=== PATIENT | male | born 1955 | race Two or more races ===

== ENCOUNTER 2017-03-18 21:14 | Emergency (ER) | payer OTHER | END 2017-03-18 22:05 | disposition left against medical advice (07) | LOC: ER 21:14 | DX: Z53.21 Procedure and treatment not carried out due to patient leaving prior to being seen by health care provider (principal) ==

== ENCOUNTER → 2017-04-22 | Outpatient (CLI) | payer OTHER ==
[~2017-04-22] MED LIST: ALLO300; Bactrim 400-801 EACH PO; FAMC500; ONDA4ODT MM; PRED20 PO; Rituxan10 MG/ML; TREANDA IV
[2017-04-22 15:02] LABS: Alanine Aminotransfer (ALT/SGP 22 U/L (12-78); Albumin, Blood 3.4 g/dL (3.4-5.0); Albumin/Globulin Ratio 1.3 (0.8-1.8); Alk Phos 33 U/L (50-136); Anion Gap 10 mmol/L (6-16); Aspartate Aminotrans (AST/SGOT 26 U/L (12-37); Bilirubin, Total 0.5 mg/dL (0.1-1.0); Blood Urea Nitrogen 11 mg/dL (8-24); Bun/Creatinine Ratio 12.3 (12.0-20.0); CO2, Blood 26 mmol/L (21-32); Calcium, Blood 8.3 mg/dL (8.5-10.1); Chloride, Blood 105 mmol/L (98-108); Creatinine, Blood 0.89 mg/dL (0.60-1.20); Globulin, Blood 2.7 g/dL (2.2-4.0); Glomerular Filtration Rate >60 (60-); Glucose, Blood 106 mg/dL (70-99); Sodium, Blood 141 mmol/L (136-145); Total Protein, Blood 6.1 g/dL (6.4-8.2)
== END ==
LOC: LAB 09:05
PROVIDERS: Internal Medicine Hematology & Oncology
DX: C91.10 Chronic lymphocytic leukemia of B-cell type not having achieved remission (principal)
CPT/HCPCS: 80053

== ENCOUNTER 2017-04-24 16:07 | Emergency (ER) | payer OTHER ==
[~2017-04-24] VITALS: Ht 180.3 cm; Wt 127.0 kg
[2017-04-24 16:44] LABS: Source, Urine Clean Catch
[2017-04-24 16:47] LABS: Appearance, Urine Clear (Clear); Bilirubin, Urine Neg (Neg); Blood, Urine Neg (Neg); Color, Urine Yellow (P-Yellow); Glucose Qualitative, Urine Neg (Neg); Ketones, Urine Neg (Neg); Leukocyte Esterase, Urine Neg (Neg); Nitrite, Urine Neg (Neg); Protein, Urine Neg (Neg); Urobilinogen, Urine NORM (Normal)
[2017-04-24] MEDS ORDERED: TREANDA IV (16:51)
[2017-04-24] MEDS ORDERED: Rituxan10 MG/ML (16:51)
[2017-04-24] MEDS ORDERED: ALLO300 (16:52)
[2017-04-24] MEDS ORDERED: FAMC500 (16:53)
[2017-04-24 16:59] LABS: Hematocrit 43.2 % (37.0-53.0); Hemoglobin 14.4 g/dL (13.5-17.5); Mean Corpuscular HGB 32.1 pg (26.0-34.0); Mean Corpuscular HGB Conc 33.3 g/dL (31.5-36.5); Mean Corpuscular Volume 96 fL (80-100); Mean Platelet Volume 9.1 fL (9.1-12.4); Platelet Count 213 K/mm3 (150-400); RDW Coefficient Variation 14.8 % (11.7-14.2); Red Blood Cell Count 4.48 M/mm3 (4.30-5.90); White Blood Cell Count 7.57 K/mm3 (4.00-11.30)
[2017-04-24 17:12] LABS: Alanine Aminotransfer (ALT/SGP 28 U/L (12-78); Albumin, Blood 3.6 g/dL (3.4-5.0); Albumin/Globulin Ratio 1.2 (0.8-1.8); Alk Phos 31 U/L (50-136); Anion Gap 14 mmol/L (6-16); Aspartate Aminotrans (AST/SGOT 36 U/L (12-37); Bilirubin, Total 0.8 mg/dL (0.1-1.0); Blood Urea Nitrogen 12 mg/dL (8-24); Bun/Creatinine Ratio 10.5 (12.0-20.0); CO2, Blood 24 mmol/L (21-32); Calcium, Blood 8.4 mg/dL (8.5-10.1); Chloride, Blood 99 mmol/L (98-108); Creatinine, Blood 1.14 mg/dL (0.60-1.20); Globulin, Blood 3.1 g/dL (2.2-4.0); Glomerular Filtration Rate >60 (60-); Glucose, Blood 89 mg/dL (70-99); Potassium, Blood 3.6 mmol/L (3.5-5.5); Sodium, Blood 137 mmol/L (136-145); Total Protein, Blood 6.7 g/dL (6.4-8.2)
[2017-04-24 17:24] LABS: Influenza A Negative (NEGATIVE); Influenza B Negative (NEGATIVE)
[2017-04-24 19:00] LABS: BASOPHILS ABSOLUTE MAN 0.07 K/mm3 (0.00-0.23); BASOPHILS PERCENT MAN 1 % (0-2); EOSINOPHILS PERCENT MAN 12 % (0-6); LYMPHOCYTES ABSOLUTE MAN 1.36 K/mm3 (0.84-5.20); LYMPHOCYTES PERCENT MAN 18 % (21-46); MONOCYTES ABSOLUTE MAN 0.52 K/mm3 (0.16-1.47); MONOCYTES PERCENT MAN 7 % (4-13); NEUTROPHILS ABSOLUTE MAN 4.69 K/mm3 (1.96-9.15); SEG NEUTROPHILS PERCENT MAN 62 % (41-73); TOTAL CELLS COUNTED 100
== END 2017-04-24 17:43 | disposition home or self-care (01) ==
LOC: ER 16:07
PROVIDERS: Emergency Medicine
DX: R50.9 Fever, unspecified (principal); C91.10 Chronic lymphocytic leukemia of B-cell type not having achieved remission
CPT/HCPCS: 36415; 71046; 80053; 81003; 83605; 85007; 85027; 87040; 87804; 99283

== ENCOUNTER → 2017-07-23 | Outpatient (CLI) | payer OTHER ==
[2017-07-23 11:40] LABS: Hematocrit 43.6 % (37.0-53.0); Hemoglobin 14.9 g/dL (13.5-17.5); Mean Corpuscular HGB 32.1 pg (26.0-34.0); Mean Corpuscular HGB Conc 34.2 g/dL (31.5-36.5); Mean Corpuscular Volume 94 fL (80-100); Mean Platelet Volume 9.4 fL (9.1-12.4); Platelet Count 209 K/mm3 (150-400); RDW Standard Deviation 47.8 fL (35.1-46.3); Red Blood Cell Count 4.64 M/mm3 (4.30-5.90); White Blood Cell Count 4.77 K/mm3 (4.00-11.30)
[2017-07-23 11:56] LABS: Alanine Aminotransfer (ALT/SGP 25 U/L (12-78); Albumin, Blood 3.6 g/dL (3.4-5.0); Albumin/Globulin Ratio 1.2 (0.8-1.8); Alk Phos 31 U/L (50-136); Anion Gap 8 mmol/L (6-16); Aspartate Aminotrans (AST/SGOT 35 U/L (12-37); Bilirubin, Total 0.5 mg/dL (0.1-1.0); Blood Urea Nitrogen 17 mg/dL (8-24); Bun/Creatinine Ratio 21.2 (12.0-20.0); CO2, Blood 25 mmol/L (21-32); Calcium, Blood 8.6 mg/dL (8.5-10.1); Chloride, Blood 107 mmol/L (98-108); Globulin, Blood 2.9 g/dL (2.2-4.0); Glomerular Filtration Rate >60 (60-); Glucose, Blood 97 mg/dL (70-99); Sodium, Blood 140 mmol/L (136-145); Total Protein, Blood 6.5 g/dL (6.4-8.2)
[2017-07-23 12:21] LABS: BAND PERCENT MAN 5 % (0-8); BASOPHILS PERCENT MAN 0 % (0-2); EOSINOPHILS ABSOLUTE MAN 0.23 K/mm3 (0.00-0.68); EOSINOPHILS PERCENT MAN 5 % (0-6); LYMPHOCYTES % ATYPICAL MANUAL 5 % (0-0); LYMPHOCYTES ABSOLUTE MAN 2.14 K/mm3 (0.84-5.20); LYMPHOCYTES PERCENT MAN 40 % (21-46); MONOCYTES ABSOLUTE MAN 0.71 K/mm3 (0.16-1.47); MONOCYTES PERCENT MAN 15 % (4-13); NEUTROPHILS ABSOLUTE MAN 1.66 K/mm3 (1.96-9.15); SEG NEUTROPHILS PERCENT MAN 30 % (41-73); TOTAL CELLS COUNTED 100
== END ==
LOC: LAB SHORT 11:28 → LAB 11:28
PROVIDERS: Internal Medicine Hematology & Oncology
DX: Z12.5 Encounter for screening for malignant neoplasm of prostate (principal); C91.10 Chronic lymphocytic leukemia of B-cell type not having achieved remission
CPT/HCPCS: 80053; 85025; G0103

== ENCOUNTER 2017-07-24 12:41 | Emergency (ER) | payer OTHER ==
[~2017-07-24] VITALS: Ht 185.4 cm; Wt 120.2 kg
[~2017-07-24 12:41] MED LIST changes: -Bactrim 400-801 EACH PO; -ONDA4ODT MM; -PRED20 PO
[2017-07-24] MEDS ORDERED: Bactrim 400-801 EACH PO (12:52)
[2017-07-24] MEDS ORDERED: ONDA4ODT MM (12:53)
[2017-07-24] MEDS ORDERED: PRED20 PO (12:54)
== END 2017-07-24 14:08 | disposition home or self-care (01) ==
LOC: ER 12:41
DX: I95.9 Hypotension, unspecified (principal); Z88.5 Allergy status to narcotic agent; Z79.899 Other long term (current) drug therapy; Z79.52 Long term (current) use of systemic steroids
CPT/HCPCS: 99283; J0696

== ENCOUNTER 2019-12-16 09:01 | Day surgery (SDC) | payer OTHER, MEDICARE | END 2019-12-16 11:40 | disposition home or self-care (01) | LOC: ORSCSDS 09:01 | PROC: 0DJD8ZZ Inspection of Lower Intestinal Tract, Via Natural or Artificial Opening Endoscopic (ICD-10-PCS; principal; 2019-12-16) | DX: Z12.11 Encounter for screening for malignant neoplasm of colon (principal); K57.30 Diverticulosis of large intestine without perforation or abscess without bleeding; E66.9 Obesity, unspecified; Z68.38 Body mass index [BMI] 38.0-38.9, adult; Z79.899 Other long term (current) drug therapy ==

== ENCOUNTER 2020-02-09 10:40 | Emergency (ER) | payer MEDICARE, OTHER ==
[~2020-02-09] VITALS: Ht 182.9 cm; Wt 117.9 kg
[~2020-02-09 10:40] MED LIST changes: +ACYCLOVIR800 MG PO; +Bactrim 400-801 EACH PO; +ONDA4ODT MM; +PRED20 PO
[2020-02-09] MEDS ORDERED: [UNRECOGNIZED DRUG - OTHER] (10:57)
[2020-02-09 12:08] LABS: BASOPHILS ABSOLUTE AUTO 0.03 K/mm3 (0.00-0.23); BASOPHILS PERCENT AUTO 0 % (0-2); EOSINOPHILS ABSOLUTE AUTO 0.01 K/mm3 (0.00-0.68); EOSINOPHILS PERCENT AUTO 0 % (0-6); Hematocrit 44.3 % (37.0-53.0); Hemoglobin 14.8 g/dL (13.5-17.5); IMMATURE GRAN ABSOLUTE AUTO 0.14 K/mm3 (0.00-0.10); IMMATURE GRAN PERCENT AUTO 1 % (0-1); LYMPHOCYTES ABSOLUTE AUTO 2.45 K/mm3 (0.84-5.20); LYMPHOCYTES PERCENT AUTO 23 % (21-46); MONOCYTES ABSOLUTE AUTO 0.49 K/mm3 (0.16-1.47); MONOCYTES PERCENT AUTO 5 % (4-13); Mean Corpuscular HGB 32.8 pg (26.0-34.0); Mean Corpuscular HGB Conc 33.4 g/dL (31.5-36.5); Mean Corpuscular Volume 98 fL (80-100); Mean Platelet Volume 9.4 fL (9.1-12.4); NEUTROPHILS ABSOLUTE AUTO 7.58 K/mm3 (1.96-9.15); NEUTROPHILS PERCENT AUTO 71 % (41-73); Platelet Count 301 K/mm3 (150-400); RDW Coefficient Variation 13.2 % (11.7-14.2); RDW Standard Deviation 47.8 fL (35.1-46.3); Red Blood Cell Count 4.51 M/mm3 (4.30-5.90)
[2020-02-09 12:29] LABS: Alanine Aminotransfer (ALT/SGP 27 U/L (12-78); Albumin, Blood 2.5 g/dL (3.4-5.0); Albumin/Globulin Ratio 0.7 (0.8-1.8); Alk Phos 25 U/L (50-136); Anion Gap 6 mmol/L (6-16); Aspartate Aminotrans (AST/SGOT 37 U/L (12-37); Bilirubin, Total 0.9 mg/dL (0.1-1.0); Blood Urea Nitrogen 18 mg/dL (8-24); CO2, Blood 27 mmol/L (21-32); Calcium, Blood 7.9 mg/dL (8.5-10.1); Chloride, Blood 105 mmol/L (98-108); Creatinine, Blood 0.95 mg/dL (0.60-1.20); Globulin, Blood 3.8 g/dL (2.2-4.0); Glomerular Filtration Rate >60 (60-); Glucose, Blood 104 mg/dL (70-99); Potassium, Blood 3.7 mmol/L (3.5-5.5); Sodium, Blood 138 mmol/L (136-145); Total Protein, Blood 6.3 g/dL (6.4-8.2); Troponin I <0.015 ng/mL (0.000-0.040)
[2020-02-09 12:34] LABS: Bicarbonate Venous 25.6 mmol/L (24.0-30.0); PCO2 Venous 42.5 mmHg (38-42); PO2 Venous 65.5 mmHg (38-42); pH Blood Venous 7.41 (7.34-7.37)
[2020-02-09 13:06] LABS: Influenza A, PCR Negative (NEGATIVE); Influenza B, PCR Negative (NEGATIVE); Resp Syncytial Virus, PCR Negative (NEGATIVE); SARS-Cov-2 (COVID-19) PCR, MMC Positive (NEGATIVE)
[2020-02-09] MEDS ORDERED: AZIT500 PO (14:32)
[2020-02-09] MEDS ORDERED: PRED20 PO (14:48)
== END 2020-02-09 17:46 | disposition home or self-care (01) ==
LOC: ER 10:40
PROVIDERS: Emergency Medicine
DX: U07.1 COVID-19 (principal); R05 Cough; R06.02 Shortness of breath
CPT/HCPCS: 0241U; 36415; 71045; 80053; 82803; 83880; 84484; 85025; 93005; 93010; 96374; 99284-25; J2405; J7030

== ENCOUNTER 2020-02-15 12:05 | Inpatient (IN) | payer MEDICARE, OTHER ==
[~2020-02-15] VITALS: Ht 190.5 cm; Wt 113.8 kg
[~2020-02-15 12:05] MED LIST changes: +AZIT500 PO; +[UNRECOGNIZED DRUG - OTHER]
[2020-02-15 12:51] LABS: PCO2 Arterial 34.6 mmHg (35-45); pH Blood Arterial 7.46 (7.35-7.45)
[2020-02-15 12:54] LABS: BASOPHILS ABSOLUTE AUTO 0.04 K/mm3 (0.00-0.23); BASOPHILS PERCENT AUTO 0 % (0-2); EOSINOPHILS PERCENT AUTO 0 % (0-6); Hematocrit 48.2 % (37.0-53.0); Hemoglobin 15.8 g/dL (13.5-17.5); IMMATURE GRAN ABSOLUTE AUTO 0.19 K/mm3 (0.00-0.10); IMMATURE GRAN PERCENT AUTO 1 % (0-1); LYMPHOCYTES ABSOLUTE AUTO 3.33 K/mm3 (0.84-5.20); LYMPHOCYTES PERCENT AUTO 19 % (21-46); MONOCYTES ABSOLUTE AUTO 0.48 K/mm3 (0.16-1.47); MONOCYTES PERCENT AUTO 3 % (4-13); Mean Corpuscular HGB 32.4 pg (26.0-34.0); Mean Corpuscular HGB Conc 32.8 g/dL (31.5-36.5); Mean Corpuscular Volume 99 fL (80-100); Mean Platelet Volume 10.1 fL (9.1-12.4); NEUTROPHILS ABSOLUTE AUTO 13.34 K/mm3 (1.96-9.15); NEUTROPHILS PERCENT AUTO 77 % (41-73); NRBC ABSOLUTE 0.02 K/mm3 (0.00-0.02); NRBC Auto 0.1 /100 WBC (0.0-0.2); Platelet Count 296 K/mm3 (150-400); RDW Coefficient Variation 13.4 % (11.7-14.2); RDW Standard Deviation 49.1 fL (35.1-46.3); Red Blood Cell Count 4.88 M/mm3 (4.30-5.90); White Blood Cell Count 17.38 K/mm3 (4.00-11.30)
[2020-02-15 13:31] LABS: Albumin, Blood 2.3 g/dL (3.4-5.0); Albumin/Globulin Ratio 0.5 (0.8-1.8); Bilirubin, Total 1.4 mg/dL (0.1-1.0); Bun/Creatinine Ratio 21.1 (12.0-20.0); Calcium, Blood 8.5 mg/dL (8.5-10.1); Creatinine, Blood 1.52 mg/dL (0.60-1.20); Globulin, Blood 4.7 g/dL (2.2-4.0); Potassium, Blood 3.7 mmol/L (3.5-5.5)
[2020-02-15 13:37] LABS: Troponin I 0.514 ng/mL (0.000-0.040)
[2020-02-15 15:37] LABS: International Normalized Ratio 1.35; Prothrombin Time Results 14.2 Sec (9.7-11.5)
--- NOTE | 2020-02-15 18:24 | NUR ---
ARRIVAL TO ICU/SHIFT SUMMARY 1530 - PT ARRIVES TO ICU AT THIS TIME. HE IS AWAKE, ALERT, AND ORIENTED TO SELF AND PLACE. HE IS CONFUSED AT TIMES AND IS SLOW TO RESPOND TO QUESTIONS. ARRIVES ON AIRVO 60L, 90% FIO2. FIO2 DECREASED AND IS NOW DOWN TO 80%. LUNG SOUNDS DIMINISHED THROUGHOUT. BP WNL. TEMP ELEVATED AT 101.5 AXILLARY UPON ARRIVAL. PT GIVEN ZOFRAN FOR NAUSEA AND THEN PO TYLENOL FOR FEVER. TEMP DECREASED TO 99.5. PT SITTING UPRIGHT IN BED AT THIS TIME. NSR, HR 80-90S. MIV NS INFUSING AT 75 ML/HR PER ORDER. , WHO IS IN PCU, WAS UPDATED ON TELEPHONE IN DETAIL. SHE STATES PT NEEDS TO CONTINUE TAKING HIS CHEMO MEDICATION DAILY, HE IS IN A CLINICAL TRIAL THROUGH [facility]. SHE REPORT SHE WILL FIND A WAY TO GET THE MEDICATION BROUGHT TO THE ICU. WILL GIVE BEDSIDE, HANDOFF REPORT TO RUIZ SWEET.
--- NOTE | 2020-02-15 22:00 | NUR ---
ASSUMPTION OF CARE PT SLEEPING IN BED, VERY DIFFICULT TO AROUSE, ORIENTED TO SELF, EVENT, LOCATION AND FOLLOWING DIRECTIONS ONCE AWAKE. PT ON ARIVO 60L AND 80% FIO2 TO MAINTIN O2 SATURATIONS> 90%, PT AGREEABLE TO PRONING, OXYGEN DEMAND DECREASED TO 50L AND FIO2 70%, SEE FLOWHSHEET FOR AIRVO TITRATIONS. MONIOTR SHOWS SINUS RHYTHM, BP SOFT BUT STABLE. DIFFICULTY OBTAINING ACCURATE TEMPORAL AND AXILLARY TEMPT, RECTAL PROBE PLACED, PT IS AFEBRILE. PT DENIES GI/ ISSUES AT THIS TIME. WEAKNESS NOTED T/O BUT PT ABLE TO ASSIST IN REPOSITIONING. CALL LIGHT WIHTIN REACH, PT ABLE TO DEMONSTRATE USE.
[2020-02-16 03:48] LABS: BASOPHILS ABSOLUTE AUTO 0.03 K/mm3 (0.00-0.23); BASOPHILS PERCENT AUTO 0 % (0-2); EOSINOPHILS PERCENT AUTO 0 % (0-6); Hematocrit 43.8 % (37.0-53.0); Hemoglobin 13.9 g/dL (13.5-17.5); Mean Corpuscular HGB Conc 31.7 g/dL (31.5-36.5); Mean Corpuscular Volume 101 fL (80-100); Mean Platelet Volume 9.9 fL (9.1-12.4); Platelet Count 213 K/mm3 (150-400); RDW Coefficient Variation 13.3 % (11.7-14.2); Red Blood Cell Count 4.35 M/mm3 (4.30-5.90); White Blood Cell Count 13.53 K/mm3 (4.00-11.30)
[2020-02-16 03:49] LABS: IMMATURE GRAN ABSOLUTE AUTO 0.08 K/mm3 (0.00-0.10); IMMATURE GRAN PERCENT AUTO 1 % (0-1); LYMPHOCYTES ABSOLUTE AUTO 2.73 K/mm3 (0.84-5.20); LYMPHOCYTES PERCENT AUTO 20 % (21-46); MONOCYTES ABSOLUTE AUTO 0.24 K/mm3 (0.16-1.47); MONOCYTES PERCENT AUTO 2 % (4-13); NEUTROPHILS ABSOLUTE AUTO 10.45 K/mm3 (1.96-9.15); NEUTROPHILS PERCENT AUTO 77 % (41-73)
[2020-02-16 04:04] LABS: Alanine Aminotransfer (ALT/SGP 32 U/L (12-78); Albumin, Blood 1.8 g/dL (3.4-5.0); Albumin/Globulin Ratio 0.5 (0.8-1.8); Alk Phos 26 U/L (50-136); Anion Gap 6 mmol/L (6-16); Aspartate Aminotrans (AST/SGOT 62 U/L (12-37); Blood Urea Nitrogen 34 mg/dL (8-24); Bun/Creatinine Ratio 34.4 (12.0-20.0); CO2, Blood 26 mmol/L (21-32); Calcium, Blood 7.8 mg/dL (8.5-10.1); Chloride, Blood 113 mmol/L (98-108); Creatinine, Blood 0.99 mg/dL (0.60-1.20); Globulin, Blood 3.9 g/dL (2.2-4.0); Glomerular Filtration Rate >60 (60-); Glucose, Blood 201 mg/dL (70-99); Magnesium, Blood 2.8 mg/dL (1.6-2.4); Phosphorus, Blood 2.8 mg/dL (2.5-4.9); Potassium, Blood 3.5 mmol/L (3.5-5.5); Sodium, Blood 145 mmol/L (136-145); Total Protein, Blood 5.7 g/dL (6.4-8.2)
--- NOTE | 2020-02-16 05:24 | NUR ---
SHIFT SUMMARY NO ACUTE CHANGES THIS SHIFT. PT SLEEPS ON AND OFF T/O NIGHT, REMAINS ORIENTED x4, HR AND BP WNL, PT REMAINS ON AIRVO TO MAINTAIN O2 SATURATIONS> 90%. PT TOLERATED PRONE POSITIONING FOR APPROX 6 HOURS, SUPPLEMENTAL OXYGEN NEEDS DECREASED TO 50L AND FIO2 70%. PT CURRENTLY SUPINE AND ON AIRVO @ 60L AND 89%. PT TOLERATING PO INTAKE, DENIES NAUSEA, VERY APPRECIATED OF APPLE JUICE. PT ABLE TO MAKE SMALL REPOSITIONS INDEPENDENTLY IN BED AND REPORTS THAT HE IS TRYING TO MOVE AROUN MUCH POSSIBLE, PTS O2 SATURATIONS DECREASE TO 85-86% WITH REPOSITIONING IN BED WITH QUICK RECOVERY. CALL LIGHT WITHIN REACH.
--- NOTE | 2020-02-16 10:17 | NUR ---
SHIFT SUMMARY CARE AND REPORT ASSUMED FROM SHANNON SWEET. PT SITTING UPRIGHT IN BED. TOLERATING AIRVO 60L, 90%. LUNG SOUNDS DIMINISHED THROUGHOUT ALL [place]. NSR, HR 70S. BP WNL. PT A/O X PERSON AND PLACE BUT IS SLOW TO RESPOND AND NEEDS DIRECT INSTRUCTIONS. NO SIGNS OF CHOKING OR ASPIRATION WHEN DRINKING. DIET ADVANCED TO REGULAR DIET. AFEBRILE THIS AM. RECTAL TEMP PROBE SECURED. MIV NS INFUSING AT 75 ML/HR PER ORDER. UPDATED ON PHONE. 0930 - PRONED AT THIS TIME WITH 2 PEOPLE. PT TOLERATING LYING ON STOMACH. WILL DECREASE O2 THERAPY TOLERATED.
--- NOTE | 2020-02-16 12:43 | NUR ---
REASSESSMENT PT HAS BEEN LAYING ON L SIDE AND ALTERNATING BEWTEEN LEFT SIDE AND PRONE. ENCOURAGED HIM THE IMPORTANCE OF BEING ON HIS STOMACH; PT DISPLAYS UNDERSTANDING AND IS COOPERATIVE. VSS. REMAINS IN NSR, HR 60S. BP WNL. AFEBRILE AT THIS TIME. NS INFUSING AT 75 ML/HR. PT EATING ICE CHIPS. WILL CONTINUE TO MONITOR.
--- NOTE | 2020-02-16 15:29 | NUR ---
REASSESSMENT PT REMAINS IN ROOM, SITTING UP IN BED IN CHAIR-LIKE POSITION. AT BEDSIDE VISITING PRIOR TO HER BEING DISCHARGED FROM HOSPITAL. PT REMAINS ON AIRVO 60L, 80% WITH SPO2 92% WHILE TALKING. NSR, HR 60-70S. BP WNL. TEMP 99.1 AT THIS TIME. PT TOLERATING SUCKING ON ICE CHIPS AND DRINKING JUICE. MIV NS INFUSING AT 75 ML/HR. PT INTERACTIVE WITH , CALM AND COOPERATIVE. REMAINS A/O X 3. WILL CONTINUE TO MONITOR.
[2020-02-16 16:51] LABS: Source, Urine Catheter
[2020-02-16 16:58] LABS: Appearance, Urine Hazy (Clear); Bilirubin, Urine Neg (Neg); Blood, Urine 3+ (Neg); Color, Urine Amber (P-Yellow); Glucose Qualitative, Urine Neg (Neg); Ketones, Urine 1+ (Neg); Leukocyte Esterase, Urine 1+ (Neg); Nitrite, Urine Neg (Neg); Protein, Urine 3+ (Neg); Urobilinogen, Urine 3+ (Normal)
[2020-02-16 17:11] LABS: Bacteria Many /hpf; Squamous Epithelial Cells Rare /hpf (Few)
--- NOTE | 2020-02-16 17:58 | NUR ---
SHIFT SUMMARY PT PRONED AND LAYED ON SIDE FOR 4 HOURS TODAY. HE WAS COOPERATIVE AND CALM AND PARTICIPATED IN CARE. TMAX 99.5. TYLENOL PO GIVEN X 1. HAS TOLERATED WEARING AIRVO 60L, 80% CURRENTLY. NSR, HR 60-70S ENTIRE SHIFT. ADEQUATE PO INTAKE OF FLUIDS. VISITED AT BEDSIDE TODAY. DIET INCREASED TO REGULAR DIET. FACE LIGHTLY SHAVED. PT REFUSED BEDBATH TODAY; LINENS WERE CHANGED. PT HAD NOT VOIDED SINCE ADMISSION YESTERDAY AND WAS HAVING DIFFICULTY VOIDING WITHOUT DESATURATING. WRIGHT CATHETER INSERTED AND UA SENT TO LAB. MIV NS INFUSING AT 75 ML/HR. WILL GIVE BEDSIDE, HANDOFF REPORT TO RUIZ SWEET.
--- NOTE | 2020-02-16 19:52 | NUR ---
ASSUMED CARE OF PT AT 1915. REPORT RECEIVED. PT PRESENTS IN BED. AIRVO HIGH FLOW IN PLACE. WILL REVIEW CHART AND PLAN OF CARE FOR THIS PT.
--- NOTE | 2020-02-16 22:53 | NUR ---
PT HAS BEEN PLACED IN PRONE POSITION. HE TOLERATES THIS FAIR. DOES ASSIST SOME WITH TURNING PRONE. HAS BEGUN TO HAVE LOW GRADE FEVER. 100.7. WILL MONITOR. PT ELIGIBLE FOR TYLENOL IF TEMP INCREASES. WILL CONTINUE TO MONITOR.
[2020-02-17 03:25] LABS: Hematocrit 38.7 % (37.0-53.0); Mean Corpuscular HGB 33.1 pg (26.0-34.0); Mean Corpuscular HGB Conc 33.6 g/dL (31.5-36.5); Mean Corpuscular Volume 99 fL (80-100); Mean Platelet Volume 10.2 fL (9.1-12.4); Platelet Count 162 K/mm3 (150-400); RDW Coefficient Variation 13.2 % (11.7-14.2); RDW Standard Deviation 47.9 fL (35.1-46.3); Red Blood Cell Count 3.93 M/mm3 (4.30-5.90); White Blood Cell Count 13.42 K/mm3 (4.00-11.30)
[2020-02-17 03:43] LABS: Alanine Aminotransfer (ALT/SGP 29 U/L (12-78); Albumin, Blood 1.6 g/dL (3.4-5.0); Albumin/Globulin Ratio 0.5 (0.8-1.8); Alk Phos 28 U/L (50-136); Anion Gap 4 mmol/L (6-16); Aspartate Aminotrans (AST/SGOT 39 U/L (12-37); Bilirubin, Total 0.9 mg/dL (0.1-1.0); Blood Urea Nitrogen 20 mg/dL (8-24); Bun/Creatinine Ratio 32.7 (12.0-20.0); CO2, Blood 28 mmol/L (21-32); Calcium, Blood 7.5 mg/dL (8.5-10.1); Chloride, Blood 111 mmol/L (98-108); Creatinine, Blood 0.61 mg/dL (0.60-1.20); Globulin, Blood 3.3 g/dL (2.2-4.0); Glomerular Filtration Rate >60 (60-); Glucose, Blood 135 mg/dL (70-99); Magnesium, Blood 2.2 mg/dL (1.6-2.4); Phosphorus, Blood 2.8 mg/dL (2.5-4.9); Potassium, Blood 3.6 mmol/L (3.5-5.5); Sodium, Blood 143 mmol/L (136-145); Total Protein, Blood 4.9 g/dL (6.4-8.2)
--- NOTE | 2020-02-17 05:19 | NUR ---
PT HAS AM CHEST X RAY WHEREAS HE IS RETURNED TO SUPINE (HIGH LAINEZ'S) PT DESATURATES TO MID 80 PERCENTS AND SLOWLY RECOVERS TO > 90 PERCENT SATURATION WITH AIRVO. PT BECOMES VERY DYSPNEIC WITH ANY EXERTION.
[2020-02-17 05:38] LABS: BAND PERCENT MAN 7 % (0-8); BASOPHILS PERCENT MAN 0 % (0-2); EOSINOPHILS PERCENT MAN 0 % (0-6); MONOCYTES ABSOLUTE MAN 0.67 K/mm3 (0.16-1.47); MONOCYTES PERCENT MAN 5 % (4-13); NEUTROPHILS ABSOLUTE MAN 11.94 K/mm3 (1.96-9.15); SEG NEUTROPHILS PERCENT MAN 82 % (41-73); TOTAL CELLS COUNTED 100
[2020-02-17 05:39] LABS: LYMPHOCYTES PERCENT MAN 6 % (21-46)
--- NOTE | 2020-02-17 09:29 | NUR ---
AM NOTE... ASSUMED CARE OF PT APROX 0700, PT IS A&Ox4, SLOW TO RESPOND D/T DYSPNIA WITH TALKING ANY ANY ACTIVITY. PT IS ON AIRVO AT 60L AND 93%FIO2 WITH O2 SATS 86-91%. L/S CLEAR BUT DIM T/O, RR EVEN LABORED WITH ACTIVITY. PT IS ABLE TO SPEAK BUT WITH SHORT/BROKEN SENTENCES. PT IS IN NSR IN 70'S-80'S, BP STABLE NO EDEMA NOTED ON ASSESSMENT. BT PRESENT AND HYPERACTIVE, ABD IS SOFT AND NONTENDER TO PALP. PT ATE 1 AND 1/2 CUPS OF APPLE SAUCE AND 1 CUP OF ORANGE JUICE THIS AM. THIS RN HELPED THE PT EAT D/T WEAKNESS IN HIS ARMS. SPUTUM CULTURE SENT THIS AM. CALL LIGHT IN REACH WILL CONTINUE TO MONITOR.
--- NOTE | 2020-02-17 13:03 | NUR ---
PT UPDATE... AT APROX 1130 PT WAS HELPED INTO THE SEMI-PRONE POSITION ON HIS LEFT SIDE, HE WAS ON THE AIRVO AT 60L AND 93%FIO2, AT THAT TIME THIS RN WAS ABLE TO TITRATE THE AIRVO TO 60L AND 61%FIO2. AT THIS TIME HE HAS BEEN TITRATED DOWN TO 60L AND 49% FIO2 WITH O2 SATS AT 94%. RR EVEN AND UNLABORED AT 20-24. PT'S BP IS 84/42 DR. CARR AWARE, ONE TIME ORDER OF LASIX HELD AT THIS TIME. WILL CONTINUE TO MONITOR.
--- NOTE | 2020-02-17 17:57 | NUR ---
SHIFT SUMMARY... FROM APROX 1130 TO 1700 PT WAS SEMI-PRONE ON HIS LEFT SIDE, DURING THIS TIME THE AIRVO WAS TITRATED FROM 60L AND 80%FIO2 DOWN TO 60L AND 49%FIO2 WITH PT SATS >91%-94%. DURING THIS TIME THE PT'S BP BECAME SOFT WITH SBP <90. DR. CARR WAS MADE AWARE, HOWEVER IT MIGHT HAVE BEEN HOW THE PT WAS LAYING AT THE TIME. PT WAS HELPED TO HIS BACK AND TO SIT UP FOR DINNER, HE ATE HIS PEACHES AND 1/2 OF HIS MAGIC CUP. DURING THIS TIME OF THE PT NOT BEING PRONED HIS O2 NEEDS INCREASED BACK UP TO 80% FIO2 WITH O2 SAT AT 90%. PT ENCOURAGED TO GO BACK INTO THE PRONE POSITION BUT PT ASKED FOR A "BREAK". PT'S TMAX FOR THE SHIFT WAS 100.4, PT WAS GIVEN TYLENOL THIS AM AND THE PT HAS BEEN AFEBRILE SINCE THEN. PT SPOKE WITH HIS ON THE PHONE AFTER EATING DINNER, PT'S FULLY UPDATED ON PT'S CONDITION AND PLAN OF CARE. CALL LIGHT IN REACH WILL CONTINUE TO MONITOR UNTIL REPORT IS GIVEN TO ONCOMING RN.
--- NOTE | 2020-02-17 20:00 | NUR ---
ASSUMED CARE OF PT AT 1915. REPORT RECEIVED. PT PRESENTS IN BED LAYING ON HIS RIGHT SIDE WITH SOMEWHAT PRONE POSITION. PT MAINTAINS 87-90 PERCENT SATURATIONS. AIRVO AT 60 L/M WITH FIO2 93%. HAVE INCREASED O2 FLOW TO MAINTAIN FIO2 95 PERCENT. PT NOTED TO HAVE TIGHT SQUEEK IN BASE OF LEFT LUNG AND CRACKLES AND SOME RHONCHI BASE RIGHT. WILL REVIEW CHART AND PLAN OF CARE FOR THIS PT.
--- NOTE | 2020-02-17 21:24 | NUR ---
PT BEGINS TO DESATURATE TO 84-85 PERCENT WHILE IN SEMI-PRONE POSITION. PT TURNED BACK TO SUPINE AND PLACED IN HIGH LAINEZ'S POSITION. PT DESATURATES TO 82 PERCENT AND REMAINED. PLACED NRB OVER AIRVO WHICH HELPED PT RECOVER TO 90 PERCENT. THIS WAS SLOW TO IMPROVE. ORAL CARE DONE, AND PT TAKES A FEW DRINKS OF WATER. NO COUGH OR NOTED ASPIRATION WITH THIS. DISCUSSED WITH PT THAT IF HIS RESPIRATORY STATUS REQUIRED HIM TO BECOME INTUBATED WOULD HE OK WITH THIS. PT STATED IF THIS WAS REQUIRED HE WOULD BE ACCEPTING OF INTUBATION. CALL MADE TO DR CARR WITH REPORT OF INCREASING OXYGEN NEED. ORDER FOR CPAP/BIPAP IF NEEDED. ALSO SPOKE WITH DR CARR WITH CONVERSATION WITH PATIENT CONCERNING POSSIBLE INTUBATION. WILL CONTINUE TO MONITOR PT. DID DISCUSS WITH RT SHILPI WITH PLAN OF CARE AND PHONE CALL WITH DR CARR.
--- NOTE | 2020-02-18 00:56 | NUR ---
PT CONTINUES WITH AIRVO WITH NRB MASK OVER WHICH HAS KEPT O2 SATURATIONS 92-94% HAVE NOT NEEDED TO ADVANCE TO CPAP OR BIPAP. PT STATES HE IS FEELING SOME BETTER WITH THIS ARRANGEMENT. TOLERATED TURN WITHOUT DESATURATIONS.
[2020-02-18 03:52] LABS: Hematocrit 40.2 % (37.0-53.0); Hemoglobin 13.5 g/dL (13.5-17.5); Mean Corpuscular HGB 32.8 pg (26.0-34.0); Mean Corpuscular HGB Conc 33.6 g/dL (31.5-36.5); Mean Corpuscular Volume 98 fL (80-100); Mean Platelet Volume 10.5 fL (9.1-12.4); Platelet Count 171 K/mm3 (150-400); RDW Coefficient Variation 13.4 % (11.7-14.2); RDW Standard Deviation 48.2 fL (35.1-46.3); Red Blood Cell Count 4.11 M/mm3 (4.30-5.90); White Blood Cell Count 14.63 K/mm3 (4.00-11.30)
[2020-02-18 04:16] LABS: Anion Gap 4 mmol/L (6-16); Blood Urea Nitrogen 19 mg/dL (8-24); CO2, Blood 29 mmol/L (21-32); Calcium, Blood 7.7 mg/dL (8.5-10.1); Chloride, Blood 109 mmol/L (98-108); Creatinine, Blood 0.66 mg/dL (0.60-1.20); Glomerular Filtration Rate >60 (60-); Glucose, Blood 151 mg/dL (70-99); Magnesium, Blood 2.3 mg/dL (1.6-2.4); Phosphorus, Blood 2.9 mg/dL (2.5-4.9); Potassium, Blood 3.7 mmol/L (3.5-5.5); Sodium, Blood 142 mmol/L (136-145)
--- NOTE | 2020-02-18 05:19 | NUR ---
PT HAD SHORT PERIOD WITHOUT HAVING NONREBREATHER MASK OVER AIRVO. AFTER APPROX 45 MINUTES WITH THIS OFF, PT BEGAN TO DESATURATE AGAIN TO MID 80'S. NONREBREATHER PLACED BACK OVER AIRVO. SATURATIONS HAVE REMAINED 92-95% PT NOTED TO HAVE LESS WORK OF BREATHING. WILL CONTINUE TO MONITOR PT CLOSELY. WILL MAKE USE OF BIPAP IF NEEDED. RESPIRATORY DEPARTMENT AWARE. WILL REPORT OFF TO ONCOMING RN.
[2020-02-18 05:21] LABS: BAND PERCENT MAN 3 % (0-8); BASOPHILS PERCENT MAN 0 % (0-2); EOSINOPHILS PERCENT MAN 0 % (0-6); LYMPHOCYTES PERCENT MAN 11 % (21-46); MONOCYTES ABSOLUTE MAN 0.14 K/mm3 (0.16-1.47); MONOCYTES PERCENT MAN 1 % (4-13); NEUTROPHILS ABSOLUTE MAN 12.87 K/mm3 (1.96-9.15); SEG NEUTROPHILS PERCENT MAN 85 % (41-73); TOTAL CELLS COUNTED 100
--- NOTE | 2020-02-18 08:30 | NUR ---
ASSUMED PT CARE FROM MICKI SOLITARIO @ 0700. PT LAYING IN BED, HOB @ 45 DEGREES ON AIRVO 60L @ 100%. RR 25-30, O2 LOW 90s. RT AT BEDSIDE TO PLACE PT ON BiPAP. AFTER APPROX 1HR, PT DID NOT IMPROVE. BRNUO @ BEDSIDE FOR INTUBATION W/ RT. PT GIVEN W/ 50mg IVP PROPOFOL, 50 mg IVP SUCCINYLCHOLINE. INTUBATION SUCCESSFUL W/ +COLOR CHANGE, MIGDALIA BS; ETT 26 @ TEETH. VENT: AC 18/400, 10/75%. GIVEN ADDITIONAL 50mg IVP PROPOFOL & 100mg PVI SUCCINYLCHOLINE FOR INC AGITATION. VENT: AC 18/400, 15/100%. PT TOLERANCE INC & OG PLACED, +SOUNDS OVER EPIGASTRUM. PLACEMENT CONFIRMED W/ CXR. 15 mg NIMBEX BOLUS GIVEN, GTT FOLLOWED @ 1mcg/kg/min. BIS 55-60. PT TOLERATING WELL. WILL TITRATE TO EFFECT & PT TOLERANCE.
[2020-02-18 11:09] LABS: PCO2 Arterial 59.2 mmHg (35-45); PO2 Arterial 65.3 mmHg (80-100); pH Blood Arterial 7.32 (7.35-7.45)
--- NOTE | 2020-02-18 14:15 | NUR ---
UPDATE: PT INTUBATED, SEDATED, PARALYZED. VENT: AC 22/350, 12/80%. NIMBEX GTT @ 4mcg/kg/min & PROPOFOL GTT @ 60mcg/kg/min. PT PRONED W/ RT AT BEDSIDE. O2 SATS IMPROVING FROM LOW 90s TO 96% & MAINTAINING. PT CONTINUES TO BREATHE OVER THE VENT @ 26rr/min. WILL CONTINUE TO TO TITRATE NIMBEX & PROPOFOL TO EFFECT. PT'S SPOUSE UPDATED VIA TELEPHONE.
--- NOTE | 2020-02-18 18:49 | NUR ---
SHIFT SUMMARY: PT INTUBATED, SEDATED, PARALYZED, PRONE. VENT: AC 22/350, 12/80%. PROPOFOL GTT @ 60mcg/kg/min, NIMBEX GTT @ 4mcg/kg/min, FENTANYL 25mcg/hr. TRAIN OF 4: DIFFICULT TO OBTAIN CONSISTENT READINGS, AT TIMES 3/4, & 0/4. PT IS BREATHING SLIGHTLY ABOVE THE VENT @ 22-26/min. LS REMAIN CLEAR. SATS >95% CONSISTENTLY. TUBE FEEDS CONTINUE @ GOAL W/100ml IN RESIDUALS. PLAN TO PRONE FOR 8HR PT TOLERATES. WILL CONTINUE TO MONITOR UNTIL REPORT OFF TO ONCOMING RN.
--- NOTE | 2020-02-18 20:00 | NUR ---
ASSUMED CARE OF PT AT 1915. REPORT RECEIVED. PT PRESENTS IN BED IN PRONE POSITION. SWIMMERS POSITION FOR ARMS FACILITATED. AC 22, Tv 350, FIO2 80 % PEEP 12. PT MAINTAINS > 94 PERCENT SATURATIONS WITH THIS SETTING. DID DECREASE FIO2 TO 75 PERCENT. PT MAINTAINS > 90 PERCENT SATURATIONS. NIMBEX DRIP AT 4 MCG'S/KG/MIN. PROPOFOL AT 60 MCG/KG/MIN. FENTANYL DRIP AT 25 MCG/HOUR. PT HAS BIS MONITOR WHICH CONFIRMS READING NEEDING PROPOFOL TO BE INCREASED TO 65 MCG'S. WILL REVIEW CHART AND PLAN AND PLAN OF CARE FOR THIS PT.
--- NOTE | 2020-02-18 23:00 | NUR ---
PT TOLERATING BEING PRONE. HAVE ALTERNATED ARM POSITIONING USING SWIMMER'S POSITION. BIS MONITORING CONTINUES MAINTAINING 40 - 60 CONSISTENTLY. HAVE BEEN ABLE TO TITRATE NIMBEX AND PROPOFOL. WILL CONTINUE TO MONITOR.
--- NOTE | 2020-02-19 02:45 | NUR ---
PT UNPRONE WITH FOUR PERSONEL AND ADDITION OF RT RAMON. NO COMPLICATIONS TO NOTE. PT HAS HAD MODERATE AMOUNT OF NASAL SECRETIONS WHILE PRONE NEWSOME COLORED. HAVE SUCTIONED NARES TO CLEAR.
[2020-02-19 04:05] LABS: BASOPHILS ABSOLUTE AUTO 0.03 K/mm3 (0.00-0.23); BASOPHILS PERCENT AUTO 0 % (0-2); EOSINOPHILS PERCENT AUTO 0 % (0-6); Hemoglobin 12.4 g/dL (13.5-17.5); IMMATURE GRAN ABSOLUTE AUTO 0.14 K/mm3 (0.00-0.10); IMMATURE GRAN PERCENT AUTO 1 % (0-1); LYMPHOCYTES ABSOLUTE AUTO 1.85 K/mm3 (0.84-5.20); LYMPHOCYTES PERCENT AUTO 14 % (21-46); MONOCYTES ABSOLUTE AUTO 0.28 K/mm3 (0.16-1.47); MONOCYTES PERCENT AUTO 2 % (4-13); Mean Corpuscular HGB 33.2 pg (26.0-34.0); Mean Corpuscular HGB Conc 31.8 g/dL (31.5-36.5); Mean Corpuscular Volume 104 fL (80-100); Mean Platelet Volume 10.2 fL (9.1-12.4); NEUTROPHILS ABSOLUTE AUTO 10.91 K/mm3 (1.96-9.15); NEUTROPHILS PERCENT AUTO 83 % (41-73); Platelet Count 148 K/mm3 (150-400); RDW Coefficient Variation 13.9 % (11.7-14.2); RDW Standard Deviation 54.1 fL (35.1-46.3); Red Blood Cell Count 3.74 M/mm3 (4.30-5.90); White Blood Cell Count 13.21 K/mm3 (4.00-11.30)
[2020-02-19 04:21] LABS: Anion Gap 1 mmol/L (6-16); Blood Urea Nitrogen 19 mg/dL (8-24); Bun/Creatinine Ratio 31.1 (12.0-20.0); CO2, Blood 33 mmol/L (21-32); Calcium, Blood 7.5 mg/dL (8.5-10.1); Chloride, Blood 109 mmol/L (98-108); Creatinine, Blood 0.61 mg/dL (0.60-1.20); Glomerular Filtration Rate >60 (60-); Glucose, Blood 161 mg/dL (70-99); Magnesium, Blood 2.4 mg/dL (1.6-2.4); Phosphorus, Blood 3.8 mg/dL (2.5-4.9); Potassium, Blood 4.2 mmol/L (3.5-5.5); Sodium, Blood 143 mmol/L (136-145)
[2020-02-19 05:20] LABS: PCO2 Arterial 79.1 mmHg (35-45); PO2 Arterial 71.2 mmHg (80-100); pH Blood Arterial 7.23 (7.35-7.45)
--- NOTE | 2020-02-19 05:34 | NUR ---
CALL MADE TO DR CARR CONCERNING CHANGE IN ABG DONE THIS AM. NO ORDERS RECEIVED AT THIS TIME. HAVE BEEN ABLE TO TITRATE NIMBEX DOWN TO 1.5 MCG'S PROPOFOL TO 55 MCG. FENTANYL CONTINUES AT 25 MCG'S PER HOUR. PT TOLERATING BEING UNPRONE. SEDATION VACATION THIS MORNING. MINIMAL RETURN FROM ETT SUCTIONING. LIGHT CREAM/YELLOW SECRETIONS. WILL CONTINUE TO MONITOR PT, AND WILL REPORT OFF TO ONCOMING RN.
--- NOTE | 2020-02-19 09:35 | NUR ---
ASSUMED CARE AT 0700 PT LAYING IN BED INTUBAED WITH VENT SETTINGS AC 22, TV 350, PEEP 12, FIO2 70%. PT ON NIMBEX INFUSING AT 1.5MCG/KGMIN. TRAIN SCORE 3/4; BIS SCORE 40-50. PROPOFOL INFUSING AT 55MCG/KG/MIN. FENTANYL AUDIO TECHNICIAN INFUSING AT 25MCG/HR. HR 70'S. SBP 100-120'S. AFIBRILE. VHP INFUSING VIA OG AT 20ML/HR (GOAL) WITH 30ML WATER FLUSHES Q4HR. WRIGHT PATENT AND DRAINING TO GRAVITY. SEE SHIFT ASSESSMENT FOR FULL ASSESSMENT.
--- NOTE | 2020-02-19 14:36 | NUR ---
PRONED AT 1415 PT TURNED TO A PRONE POSITION AT 1415 FOR 12HR. PT TO RETURN TO A SUPINE POSITION AT 0200 ON 02/20/20. VHP TURNED OFF; NEW ORDERS PROVIDED TO RESTART AT 0200 WHEN RETURNED TO SUPINE POSITION. VS STABLE.
[2020-02-19 17:55] LABS: Base Excess Venous 11.4 mmol/L; Bicarbonate Venous 33.4 mmol/L (24.0-30.0); PCO2 Venous 44.5 mmHg (38-42)
--- NOTE | 2020-02-19 18:18 | NUR ---
END OF SHIFT SUMMARY PT CONT TO BE INTUBATED WITH VENT SETTINGS AC 24, TV 500, PEEP 12, FIO2 60%. NIMBEX INFUSING AT 1.5MCG/KG/MIN. TRAIN SCORE 2-4. BIS 20-60. PROPOFOL INFUSING AT 55MCG/KG/MIN. FENTANYL INFUSING AT 25MCG/HR. HR 60'S. SBP 100-115. MAX TEMP 99.5. PT PUT IN PRONE POSITION AT 1415, TO BE PUT BACK IN SUPINE POSITION AT 0200 02/20/20. VHP STOPED AND OG CLAMPED FOR PRONE POSITION AND TO RESUME AT 0200. SEE ORDER FOR INSTRUCTIONS. WRIGHT IN PLACE AND DRAINING TO GRAVITY. WILL REPORT TO PM RN WHEN AVAILABLE.
--- NOTE | 2020-02-19 18:40 | NUR ---
NOTIFIED DR KELVIN WARREN NOTIFIED OF VBG RESULTS. NEW VENT SETTING ORDERS PROVIDED. RT COMMUNICATION ORDER PUT IN PLACE.
--- NOTE | 2020-02-19 20:10 | NUR ---
ASSUMED CARE OF PT AT 1920 CURRENT GTTS PER ICU FLOW SHEET TO PICC IN LEFT UPPER ARM, SITE WNL, DRESSING IS CDI, NO REDNESS, SWELLING, OR DRAINAGE AT INSERTION SITE. TRAIN OF 4 IS NOTED 4/4 AT THIS TIME, PT IS PRONE POSITION, VENT SETTINGS ARE AC 22, TV 500, FIO2 60%, PEEP 12.0, SATS ARE LOW 90S TO HIGH 80S, LUNGS ARE CLEAR WITH DIM BASES BILAT, OF NOTE RESPIRATORY THERAPY WAS AT BEDSIDE DURING RN SHIFT REPORT FOR SETTING CHANGE. PT IS NONRESPONSIVE, BIS MONITOR IN PLACE READINGS ARE BETWEEN 40 AND 60 WHEN UNDISTURBED, NOTED TO INCREASE TO 70S WITH REPOSITIONING AND ORAL CARE HOWEVER RETURN TO 40-60 WITHIN 5 MINUTES OF CESSATION OF NOXIOUS STIMULI. HRR, SINUS ON MONITOR, RATE 70S, PULSES FULL, SKIN PWD, CAP REFILL 3 SECONDS, DEPENDENT EDEMA IS NOTED, NON-PITTING. BOWEL TONES HYPOACTIVE, ABD SOFT, OG IN PLACE, CLAMPED, MIN RESIDUALS. TEMP PROBE WRIGHT DRAINING CLEAR YELLOW/GREEN URINE. MEPILEX IS NOTED TO BILAT KNEES, SHINS ARE ELEVATED ON PILLOWS SUCH THAT GREAT TOES ARE BARELY TOUCHING SHEETS. WILL CONT FREQUENT REPOSITIONING, PLAN TO UNPRONE AT 0215. WILL PLAN FOR SEDATION VACATION AFTER PT IS UNPRONED.
--- NOTE | 2020-02-19 21:51 | NUR ---
ADLS PILLOW REMOVED FROM UNDER LEFT HIP, PT SHIFTED ON SHEETS, LACRI-LUBE TO RIGHT EYE, WILL APPLY TO LEFT EYE WITH NEXT HEAD POSITION CHANGE. PILLOWS REPOSITIONED UNDER BILAT LOWER EXTREMITIES, FEET REMAIN FLOATED.
--- NOTE | 2020-02-19 21:53 | NUR ---
ADLS PT IS IN PRONE POSITION, HOB IS ELEVATED VIA REVERSE TRENDELENBURG POSITION, BOOSTED IN BED, RT AT BEDSIDE FOR HEAD REPOSITIONING, HEAD IS REPOSITIONED TO LEFT SIDE AT THIS TIME, PT TOLERATED WELL. PILLOW PLACED UNDER LEFT HIP.
--- NOTE | 2020-02-20 03:40 | NUR ---
SEDATION VACATION PROPOFOL AND NIMBEX TO STANDBY AT 0300 FOR SEDATION VACATION, OF 0330 PT WAS NOTED TO BLINK WITHOUT OPENING EYES, WAS MOVING JAW TO CHEW ON ETT BITE BLOCK, LIPS MOVING AROUND ETT, STRONG FREQUENT COUGH, RESP RATE INCREASED TO 48/MIN. AT NO TIME DURING SEDATION VACATION DID PT FOLLOW COMMANDS, NO MOVEMENT NOTED TO EXTREMITIES X 4. SEDATION AND PARALYSIS RESUMED.
[2020-02-20 03:42] LABS: BASOPHILS ABSOLUTE AUTO 0.05 K/mm3 (0.00-0.23); BASOPHILS PERCENT AUTO 0 % (0-2); EOSINOPHILS ABSOLUTE AUTO 0.05 K/mm3 (0.00-0.68); EOSINOPHILS PERCENT AUTO 0 % (0-6); Hematocrit 41.1 % (37.0-53.0); Hemoglobin 13.2 g/dL (13.5-17.5); Mean Corpuscular HGB 32.3 pg (26.0-34.0); Mean Corpuscular HGB Conc 32.1 g/dL (31.5-36.5); Mean Corpuscular Volume 101 fL (80-100); Mean Platelet Volume 10.6 fL (9.1-12.4); Platelet Count 210 K/mm3 (150-400); RDW Coefficient Variation 13.7 % (11.7-14.2); RDW Standard Deviation 51.4 fL (35.1-46.3); Red Blood Cell Count 4.09 M/mm3 (4.30-5.90); White Blood Cell Count 16.35 K/mm3 (4.00-11.30)
[2020-02-20 03:45] LABS: IMMATURE GRAN ABSOLUTE AUTO 0.49 K/mm3 (0.00-0.10); IMMATURE GRAN PERCENT AUTO 3 % (0-1); LYMPHOCYTES ABSOLUTE AUTO 3.27 K/mm3 (0.84-5.20); LYMPHOCYTES PERCENT AUTO 20 % (21-46); MONOCYTES ABSOLUTE AUTO 0.48 K/mm3 (0.16-1.47); MONOCYTES PERCENT AUTO 3 % (4-13); NEUTROPHILS ABSOLUTE AUTO 12.01 K/mm3 (1.96-9.15); NEUTROPHILS PERCENT AUTO 74 % (41-73)
[2020-02-20 03:58] LABS: Anion Gap 4 mmol/L (6-16); Blood Urea Nitrogen 24 mg/dL (8-24); Bun/Creatinine Ratio 34.5 (12.0-20.0); CO2, Blood 34 mmol/L (21-32); Calcium, Blood 7.9 mg/dL (8.5-10.1); Chloride, Blood 103 mmol/L (98-108); Glomerular Filtration Rate >60 (60-); Glucose, Blood 118 mg/dL (70-99); Potassium, Blood 3.8 mmol/L (3.5-5.5); Sodium, Blood 141 mmol/L (136-145)
--- NOTE | 2020-02-20 05:32 | NUR ---
PT REMAINED PRONED UNTIL 022 THIS AM, TOLERATED WELL, NIMBEX REMAINS AT 1.5 MCG/KG/MIN, PROPOFOL REMAINS AT 55 MCG/KG/MIN, BIS CONTINUES 40-60 WITHOUT NOXIOUS STIMULI, DOES INCREASE TO MID 70S WITH ORAL CARE HOWEVER DECREASES TO 40-60 WITHIN 5 MINUTES OF COMPLETION OF CARE. FIO2 REQUIREMENTS INCREASED TO 75% THIS SHIFT, HOWEVER SATS ARE NOW MID 90S. SEDATION VACATION THIS AM FROM 4152-2155, SEE SEDATION VACATION NOTE, OF THIS TIME PT BIS MONITOR IS HIGH 40S LOW 50S, CONTINUES WITH 4/4 ON TRAIN OF 4 THROUGHOUT NOC, LUNGS INTERMITTENTLY COARSE, SUCTION OF ETT IS NOW PRODUCTIVE OF THICK YELLOW GREEN SPUTUM. SINUS RHYTHM CONTINUES, PRESSURES MAINTAIN STABLE, EDEMA CONTINUES. VITAL HIGH PROTEIN TUBE FEEDS RESUMED AT 0300 AT 30 ML/HR, INCREASED TO 65 ML/HR AT 0400, MINIMAL RESIDUALS THROUGHOUT NOC, HYPOACTIVE BOWEL TONES CONTINUE. TEMP PROBE WRIGHT REMAINS IN PLACE DRAINING CLEAR GREEN URINE.
--- NOTE | 2020-02-20 09:30 | NUR ---
ASSUMED CARE AT 0700 PT LAYING IN BED INTUBATED WITH VENT SETTINGS AC 22, TV 500, PEEP 12, FIO2 70%. PT INITIALLY ON NIMBEX INFUSING AT 1.5MCG/KG/MIN; PROPOFOL INFUSING AT 55MCG/KG/MIN; FENTANYL 25MCG/HR. NO COUGH OR GAG PRESENT, PT NOT FOLLOWING COMMANDS WITH RR 24, HR 70'S, O2 SAT >90%. SEDATION VACATION STARTED AT 0820 WITH NIMBEX AND PROPOFOL ON SB. AFTER 45MIN PT ATTEMPTED TO OPEN EYES WITH VERBAL STIMULATION, HAD A GAG AND COUGH, BUT DID NOT FOLLOW COMMANDS IN REGARDS TO MOVING EXTREMITIES. NOW RR 24-27, HR 70'S, O2 SAT >90%. DISCUSSED SEDATION VACATION WITH DR WARREN, PLAN IS TO KEEP NIMBEX ON SB, AND RESTART PROPOFOL TO KEEP PT COMFORTABLE. VHP INFUSING VIA OG AT 65ML/HR (GOAL) WITH 30ML WATER FLUSHES Q4HR. WRIGHT PATENT AND DRAINING TO GRAVITY. SEE SHIFT ASSESSMENT FOR FULL ASSESSMENT.
--- NOTE | 2020-02-20 10:21 | NUR ---
PROPOFOL RESTARTED PT REASSESSED BEFORE PROPOFOL RESTARTED, NO CHANGES IN FOLLOWING COMMANDS. PROPOFOL INFUSING AT 35MCG/KG/MIN. RESTRAINTS IN PLACE WHEN NIMBEX TURNED TO SB.
--- NOTE | 2020-02-20 14:01 | NUR ---
VHP STOPPED AT 1200 VHP WAS DECREASED TO 30ML/HR. AT 1300 VHP WAS STOPED AND OG CLAMPED DUE TO PRONE POSITION IN AN HOUR.
--- NOTE | 2020-02-20 15:12 | NUR ---
PT PRONED 2RN'S, CHARGE NURSE, AND RT PLACED PT IN PRONE POSITION AT 1420 AND IS TO BE BACK IN SUPINE POSITION AT 0200. HR IN 70'S. O2 SAT >90%. WILL CONT TO MONITOR
--- NOTE | 2020-02-20 18:28 | NUR ---
END OF SHIFT SUMMARY PT PLACED IN PRONE POSITION AT 1420 TODAY AND CONT TO BE ON VENT WITH SETTINGS AC 22, TV 500, PEEP 10, FIO2 60%. INCREASE IN SECREATIONS SINCE PRONE POSITION; O2 SAT >90% PT RESPONDS TO NOXIOUS STIMULI. NIMBED OFF. PROPOFOL INFUSING AT 35MCG/KG/MIN. FENTANYL INFUSING AT 25MCG/HR. MAX TEMP 100. HR 70'S. SBP 140-160'S. OG CLAMPED. WRIGHT PATENT AND DRAINING TO GRAVITY. WILL REPORT TO PM RN WHEN AVAILABLE.
[2020-02-21 03:36] LABS: BASOPHILS ABSOLUTE AUTO 0.07 K/mm3 (0.00-0.23); BASOPHILS PERCENT AUTO 0 % (0-2); EOSINOPHILS PERCENT AUTO 1 % (0-6); Hematocrit 41.1 % (37.0-53.0); Hemoglobin 13.4 g/dL (13.5-17.5); Mean Corpuscular HGB 32.4 pg (26.0-34.0); Mean Corpuscular HGB Conc 32.6 g/dL (31.5-36.5); Mean Corpuscular Volume 99 fL (80-100); Mean Platelet Volume 10.4 fL (9.1-12.4); Platelet Count 232 K/mm3 (150-400); RDW Coefficient Variation 13.7 % (11.7-14.2); RDW Standard Deviation 50.4 fL (35.1-46.3); Red Blood Cell Count 4.14 M/mm3 (4.30-5.90); White Blood Cell Count 17.56 K/mm3 (4.00-11.30)
[2020-02-21 03:48] LABS: IMMATURE GRAN ABSOLUTE AUTO 0.73 K/mm3 (0.00-0.10); IMMATURE GRAN PERCENT AUTO 4 % (0-1); LYMPHOCYTES ABSOLUTE AUTO 5.27 K/mm3 (0.84-5.20); LYMPHOCYTES PERCENT AUTO 30 % (21-46); MONOCYTES ABSOLUTE AUTO 0.66 K/mm3 (0.16-1.47); MONOCYTES PERCENT AUTO 4 % (4-13); NEUTROPHILS ABSOLUTE AUTO 10.63 K/mm3 (1.96-9.15); NEUTROPHILS PERCENT AUTO 61 % (41-73)
[2020-02-21 03:58] LABS: Anion Gap 4 mmol/L (6-16); Blood Urea Nitrogen 21 mg/dL (8-24); Bun/Creatinine Ratio 32.2 (12.0-20.0); CO2, Blood 38 mmol/L (21-32); Chloride, Blood 100 mmol/L (98-108); Creatinine, Blood 0.65 mg/dL (0.60-1.20); Glomerular Filtration Rate >60 (60-); Glucose, Blood 99 mg/dL (70-99); Magnesium, Blood 1.8 mg/dL (1.6-2.4); Phosphorus, Blood 3.5 mg/dL (2.5-4.9); Potassium, Blood 3.3 mmol/L (3.5-5.5); Sodium, Blood 142 mmol/L (136-145); Triglycerides 159 mg/dL (30-160)
--- NOTE | 2020-02-21 06:42 | NUR ---
SEDATION VACATION THIS AM STARTING AT 0600, PT DOES OPEN EYES TO SPOKEN NAME HOWEVER DOES NOT FOLLOW COMMANDS TO MOVE FINGERS OR TOES, DOES NOT WITHRAW FROM NOXIOUS STIMULI TO EXTREMITIES AT THIS TIME HOWEVER DOES OPEN EYES AND COUGH, WILL RESUME PROPOFOL AT 20 MCG/KG/MIN AT THIS TIME. PT WAS PRONE UNTIL 0245 THIS AM, PEEP WAS INCREASED BACK TO 12 THIS SHIFT AND FIO2 TITRATED UP TO 90%, SATS ARE NOW 95%, WILL TITRATE FIO2 TO 85%, LUNGS COARSE INTERMITTENTLY, CLEAR WITH SUCTIONING. TUBE FEEDING RESUMED PER ORDERS, PT DID HAVE BM THIS SHIFT. RESIDUALS CONTINUE MINIMAL. GREATER THAN 2 LITERS URINE OUT THIS SHIFT, COLOR CONTINUES TO BE GREEN.
--- NOTE | 2020-02-21 10:42 | NUR ---
Pt intubated will remain availble for family if needed.
--- NOTE | 2020-02-21 11:49 | NUR ---
ASSUMED CARE AT 0700 PT LAYING IN BED INTUBATED WITH VENT SETTINGS AC 22, TV 500, PEEP 12, FIO2 80%. LARGE AMOUNTS OF THICK SECREATIONS SUCTIONED. PT RESPONDS TO NOXIOUS STIMULI AND ATTEMPTS TO OPEN EYES TO VERBAL STIMULI BUT DOES NOT FOLLOW COMMANDS RELATED TO MOVEING EXTREMITIES. HR 70'S. BP STABLE. VHP INFUSING VIA OG AT 65ML/HR WITH 30ML WATER FLUSHES Q4HR. RECTAL TUBE PLACED AT 0830 DUE TO LARGE LIQUID BROWN STOOL. DUIRNG PLACEMENT OF RECTAL TUBE, PT WAS ON LEFT SIDE AND O2 SAT DECREASED TO 70%. FIO2 THEN INCREASED TO 100%, PT REPOSITIONED TO SUPINE WITH HEAD OF BED >30 DEGREES AND PT SLOWLY RECOVERED TO O2 SAT >90%. WRIGHT IN PLACE AND DRAINING TO GRAVITY. SEE SHIFT ASSESSMENT FOR FULL ASSESSMENT.
--- NOTE | 2020-02-21 18:38 | NUR ---
END OF SHIFT SUMMARY PT CONT TO BE INTUBATED WITH VENT SETTINGS AC 22, TV 500, PEEP 12, FIO2 70%. LARGE THICK SECREATIONS SUCTIONED WHEN PT WAS PRONED AT 1430. PT RESPONDS TO NOXIOUS STIMULI BUT HAS NOT FOLLOWED COMMANDS. PROPOFOL INFUSING AT 35MCG/KG/MIN. FENTANYL INFUSING AT 25MCG/HR. MAX TEMP 100.9. HR 70'S. SBP 120-140'S. OG CLAMPED DUE TO PT IN PRONE POSITION. RECTAL TUBE PLACED TODAY DUE TO LARGE AMOUNTS OF LIQUID BROWN STOOL. WRIGHT IN PLACE AND DRAINING TO GRAVITY. PT TO BE BACK IN SUPINE POSITION AT 0200. WILL REPORT TO PM RN WHEN AVIALABLE.
--- NOTE | 2020-02-21 19:15 | NUR ---
ASSUMED CARE, REPORT RECEIVED PT IS NOTED IN PRONE POSITION, VENT SETTINGS AC 22, TV 500, FIO2 70%, PEEP 12, SATS ARE LOW 90S ON MONITOR, CURRENT RESP RATE 22-24/MIN. PROPOFOL IS NOTED AT 35 MCG/KG/MIN, RATE 25 ML/HR, FENTANYL CONTINUES AT 25 MCG/HR, NS AT TKO. HRR, SINUS ON MONITOR, PRESSURES MAINTAINING STABLE. PT APPEARS TO BE RESTING QUIETLY BILAT WRIST RESTRAINTS IN PLACE, SWIMMERS POSITION NOTED WITH HEAD FACING RIGHT SIDE, RIGHT ARM UP, LEFT ARM DOWN, PILLOWS ARE UNDER RIGHT SIDE, TAPE IN PLACE TO BILAT EYES PER DAY SHIFT RN. WILL FULLY ASSESS AT NEXT SCHEDULED TURN.
--- NOTE | 2020-02-21 20:30 | NUR ---
ASSESSMENT PT DOES APPEAR TO ATTEMPT TO OPEN EYES WHEN SPOKEN TO, EYELIDS ARE TAPED HOWEVER, THIS IS EXPLAINED TO PT WELL PURPOSE OF TAPE PLACEMENT. HE DOES NOT FOLLOW COMMANDS AT THIS TIME BUT IS NOTED TO ATTEMPT TO MOVE HEAD AWAY FROM PROVIDED ORAL CARE, COUGH AND GAG REFLEXES ARE NOTED PRESENT. TAPE IS REMOVED FROM RIGHT EYE AND LACRI-LUBE APPLIED, TAPE REAPPLIED. RT CONTACTED FOR REPOSITIONING ASSISTANCE, PT ELEVATOR ADJUSTER CONTACTED FOR REPOSITIONING ASSISTANCE. PT LUNGS ARE NOTED CLEAR/DIM THROUGHOUT, COPIOUS ORAL SECRETIONS ARE SUCTIONED, FACIAL PRONATION PADDING IS DRIED AT THIS TIME, MEPILEX BETWEEN NASAL SEPTUM AND OLIVIA DEVICE IS REMOVED DUE TO SATURATION WITH SECRETIONS, NARES AND UPPER LIP CLEANSED AND DRIED, MEPILEX PADDING PLACED, WILL PLAN TO CLEANSE AND DRY WITH EACH TURN, REPLACE MEPILEX NEEDED. RT AND PT ELEVATOR ADJUSTER ARRIVE TO BEDSIDE AND PT IS POSITIONED SUCH THAT HEAD IS NOW FACING LEFT, FACIAL PADDING IS ENSURED TO BE PLACED SUPERIOR TO EYEBROW, DOWN ALONG RIGHT SIDE OF FACE TO RIGHT MANDIBLE, ENSURED NO CONTACT WITH SURFACES UNDER RIGHT EYE, NOSE, AND ETT, LEFT ARM UP, RIGHT ARM DOWN AT SIDE, AND PILLOWS UNDER LEFT HIP AND SHOULDER WITH LEFT KNEE BENT AND TOES FLOATED, PILLOW UNDER RIGHT DE LA FUENTE TO FLOAT TOES. TAPE REMOVED FROM LEFT EYE AND LACRI-LUBE APPLIED, TAPE REPLACED. ETT REMAINS AT 27 AT COMPLETION OF REPOSITIONING.
--- NOTE | 2020-02-22 03:25 | NUR ---
SEDATION VACATION PT PROPOFOL TO STANDBY AT 0300, AT COMPLETION OF SEDATION VACATION PT OPENS EYES TO SPOKEN NAME, DOES NOT ANSWER YES/NO QUESTIONS, DOES NOT FOLLOW COMMANDS, HE DOES NOT MOVE FINGERS OR TOES AT THIS TIME BUT DOES OPEN EYES WHEN HANDS OR FEET ARE TOUCHED. SEDATION RESUMED FOR VENTILATOR COMPLIANCE HIGH PRESSURE ALARM FREQUENTLY TRIGGERED AND RESP RATE INCREASED TO 30/MIN, SATS DID MAINTAIN LOW 90S THROUGHOUT SEDATION VACATION.
[2020-02-22 03:43] LABS: Hematocrit 36.4 % (37.0-53.0); Hemoglobin 11.9 g/dL (13.5-17.5); Mean Corpuscular HGB 32.9 pg (26.0-34.0); Mean Corpuscular HGB Conc 32.7 g/dL (31.5-36.5); Mean Corpuscular Volume 101 fL (80-100); Mean Platelet Volume 10.4 fL (9.1-12.4); Platelet Count 208 K/mm3 (150-400); RDW Coefficient Variation 13.9 % (11.7-14.2); RDW Standard Deviation 51.1 fL (35.1-46.3); Red Blood Cell Count 3.62 M/mm3 (4.30-5.90); White Blood Cell Count 14.23 K/mm3 (4.00-11.30)
[2020-02-22 04:04] LABS: Anion Gap 3 mmol/L (6-16); Blood Urea Nitrogen 20 mg/dL (8-24); CO2, Blood 36 mmol/L (21-32); Calcium, Blood 8.1 mg/dL (8.5-10.1); Chloride, Blood 103 mmol/L (98-108); Creatinine, Blood 0.57 mg/dL (0.60-1.20); Glomerular Filtration Rate >60 (60-); Glucose, Blood 100 mg/dL (70-99); Magnesium, Blood 2.1 mg/dL (1.6-2.4); Phosphorus, Blood 3.1 mg/dL (2.5-4.9); Potassium, Blood 3.6 mmol/L (3.5-5.5); Sodium, Blood 142 mmol/L (136-145)
--- NOTE | 2020-02-22 05:47 | NUR ---
PT REMAINS SEDATED AND INTUBATED, VENT SETTINGS REMAIN UNCHANGED THROUGHOUT NOC, PT WAS UNPRONED AT 0225 THIS AM WITH RT, MECHANISM ASSEMBLER, PT WELL BLOWER, AND THIS RN AT BEDSIDE. ETT MEASUREMENT CONFIRMED WITH RT RAMON MORTON FOLLOWING PT POSITION CHANGE. LUNG SOUNDS CONTINUE WITHOUT SIGNIFICANT CHANGES THROUGHOUT NOC. SATS ARE IMPROVED TO 94% FOLLOWING UNPRONING PT. PT CONTINUES TO NOT FOLLOW COMMANDS DURING SEDATION VACATION THIS AM, DOES OPEN EYES MORE AND EARLIER IN SEDATION VACATION THAN PREVIOUS NOC SHIFT SEDATION VACATION. HE DOES NOT MOVE EXTREMITIES HOWEVER IS NOTED TO OPEN EYES WITH TOUCH STIMULUS TO BILAT HANDS AND FEET, SEDATION WAS RESUMED FOR VENTILATOR TOLERANCE, SEE SEDATION VACATION NOTE. PRESSURES CONTINUE STABLE AND PT REMAINS IN SINUS RHYTHM THROUGHOUT NOC. TUBE FEEDING RESUMED AT 0225 AT 30 ML/HR AND THEN INCREASED 1 HOUR LATER PER ORDERS TO GOAL RATE OF 65 ML/HR, RESIDUALS LESS THAN 10 ML.
[2020-02-22 06:25] LABS: BASOPHILS PERCENT MAN 0 % (0-2); EOSINOPHILS PERCENT MAN 0 % (0-6); LYMPHOCYTES ABSOLUTE MAN 4.69 K/mm3 (0.84-5.20); METAMYELOCYTE ABSOLUTE MAN 0.14 K/mm3 (0.00-0.00); METAMYELOCYTE PERCENT MAN 1 % (0-0); MONOCYTES ABSOLUTE MAN 0.99 K/mm3 (0.16-1.47); MONOCYTES PERCENT MAN 7 % (4-13); MYELOCYTE ABSOLUTE MAN 0.14 K/mm3 (0.00-0.00); MYELOCYTE PERCENT MAN 1 % (0-0); NEUTROPHILS ABSOLUTE MAN 8.25 K/mm3 (1.96-9.15); SEG NEUTROPHILS PERCENT MAN 58 % (41-73); TOTAL CELLS COUNTED 100
[2020-02-22 06:27] LABS: LYMPHOCYTES PERCENT MAN 33 % (21-46)
--- NOTE | 2020-02-22 09:22 | NUR ---
ASSUMED CARE OF PT AT 0700. REPORT FROM ANITHA SWEET. PT INTUBATED AND SEDATED. VENT SETTINGS AC 22/500/12/70%. PROPOFOL GTT AT 35 MCG/KG/MIN, FENTANYL GTT AT 25 MCG/HR. PT RESPONSIVE TO PAINFUL STIMULI. DOES NOT FOLLOW COMMANDS. GRIMACES c CARE. LUNGS CLEAR, DIMINISHED IN BASES. THICK WHITE/YELLOW SECRETIONS THROUGH ETT. COUGH/GAG REFLEX PRESENT. ABD ROUND, SOFT, NON TENDER. BT X 4. TUBE FEEDINGS AT GOAL 65 ML/HR c 30 ML FLUSH q4 HR, 30 ML RESIDUALS THIS AM. WRIGHT PATENT, DRAINING DARK GREEN/YELLOW URINE TO GRAVITY. RECTAL TUBE IN PLACE, DRAINING BROWN LIQUID STOOL TO GRAVITY. GENERALIZED EDEMA TO EXTREMITIES. PICC TO LUE, DRESSING C/D/I. BP STABLE, NSR RATE 70'S, SPO2 LOW 90'S. PLAN TO PRONE AT 1400. WILL CONTINUE TO MONITOR.
--- NOTE | 2020-02-22 10:06 | NUR ---
SEDATION VACATION PROPOFOL PLACED ON STANDBY FOR APPROX 20 MINS. PT OPENS EYES TO VERBAL STIMULI. DOES NOT FOLLOW COMMANDS. DOES NOT TRACK STAFF IN ROOM. RR INCREASED TO HIGH 20'S, PT COUGHING. PROPOFOL RESTARTED.
--- NOTE | 2020-02-22 17:46 | NUR ---
SHIFT SUMMARY PT REMAINS INTUBATED AND SEDATED. VENT SETTINGS AC 22/500/10/55%. PROPOFOL GTT AT 35 MCG/KG/MIN. FENTANYL GTT AT 25 MCG/HR. RESPONSIVE TO PAINFUL STIMULI, SEE SEDATION VACATION NOTE. LUNGS CLEAR THROUGHOUT. SMALL AMOUNT OF THICK YELLOW SECRETIONS THROUGH ETT. LUNGS CLEAR. PT PRONED AT 1500. O2 SATS DECREASED TO HIGH 80'S-LOW 90'S FOR APPROX 1 HOUR. TUBE FEEDS PLACED ON STANDBY FOR PRONING. RECTAL TUBE IN PLACE, MINIMAL OUTPUT THIS SHIFT. WRIGHT PATENT, DRAINING DARK GREEN URINE TO GRAVITY. BP STABLE, HR 60S'. WILL CONTINUE TO MONITOR UNTIL REPORT TO ONCOMING NURSE.
--- NOTE | 2020-02-22 19:40 | NUR ---
ASSUMED CARE OF PT, REPORT RECEIVED. PT REMAINS SEDATED AND INTUBATED, IS IN PRONE POSITION AT THIS TIME, PLAN TO UNPRONE AT 0200. VENT SETTINGS ARE NOTED AC 22, TV 500, PEEP 10 AND FIO2 55%, SATS ARE MAINTAINING LOW 90S WHEN PT IS UNDISTURBED, COPIOUS ORAL AND NASAL SECRETIONS CONTINUE, LUNGS CLEAR THROUGHOUT WITH DIM BASES BILAT, RATE 22-26 AT THIS TIME, BREATH STACKING IS NOTED FOLLOWING ORAL CARE AND REPOSITIONING, PROPOFOL IS INCREASED WILL CONT TO MONITOR, SEE ICU FLOWSHEET FOR TITRATION.
--- NOTE | 2020-02-23 03:30 | NUR ---
ET TUBE PT RETURNED TO SUPINE AT 0250 WITH RT, ETT DEPTH CONFIRMED AFTER COMPLETION OF REPOSITIONING, LUNG SOUNDS EQUAL BILAT, PT WITH STRONG COUGH FOLLOWING ORAL CARE AND MARKED CUFF LEAK, 1 ML AIR ADDED TO CUFF AND CUFF LEAK CONTINUES, ET TUBE APPEARS TO BE LESS THAN 26 AT TEETH, TUBE MANUALLY SECURED AND RT CALLED TO BEDSIDE, RT X 2 ARRIVES TO BEDSIDE, TUBE RESECURED TO OLIVIA, DEPTH 26 AT TEETH, 27 AT LIP, BREATH SOUNDS EQUAL BILAT, SATS MAINTAINING, CUFF LEAK IS NO LONGER PRESENT.
--- NOTE | 2020-02-23 06:49 | NUR ---
PT REMAINED PRONE UNTIL 0250 THIS AM, WAS NOTED TO HAVE FREQUENT BREATH STACKING AND PROPOFOL WAS INCREASED THROUGHOUT SHIFT TO 65 MCG/KG/MIN, OCCASIONAL BREATH STACKING CONTINUED HOWEVER PEAK PRESSURES REMAINED LESS THAN 45 WITH STACKED BREATH, PRESSURES OTHERWISE MID 20S, SEDATION VACATION THIS AM FROM 0600 TO 0630, PT OPENED EYES TO SPOKEN NAME, LIFTS AND MOVES HEAD ON PILLOW, NO MOTOR RESPONSE FROM EXTREMITIES X 4, PT DOES NOT FOLLOW COMMANDS, DOES NOT WITHRAW EXTREMITIES FROM PAINFUL STIMULI, IS NOTED TO ATTEMPT TO CLOSE EYES WHEN LACRI-LUBE IS APPLIED. VENT SETTINGS REMAIN UNCHANGED THROUGHOUT NOC, SATS MAINTAINING LOW 90S.
--- NOTE | 2020-02-23 08:25 | NUR ---
ASSUMED CARE OF PT AT 0700. REPORT FROM ANITHA SWEET. PT INTUBATED AND SEDATED. VENT SETTINGS AC 22/500/10/55%. PROPOFOL GTT AT 30 MCG/KG/MIN. PT GRIMACES c CARE, TURNS HEAD AWAY FROM ORAL CARE. DOES NOT FOLLOW DIRECTIONS. LUNGS CLEAR, DIMINISHED IN BASES. THIN, CLEAR/WHITE SECRETIONS THROUGH ETT. COUGH/GAG REFLEX NOTED. JENNY, 2MM, FENTANYL GTT AT 25 MCG/HR. ABD ROUND, SOFT, NON TENDER. HYPOACTIVE BT. TUBE FEEDINGS AT GOAL OF 65 ML/HR c 30 ML FLUSHES q4 HR. 65 ML RESIDUALS THIS AM. WRIGHT PATENT, DRAINING GREEN DARK URINE TO GRAVITY. RECTAL TUBE PATENT, DRAINING BROWN LIQUID URINE TO GRAVITY. GENERALIZED EDEMA TO ALL EXTREMITIES. PICC TO APRILE, DRESSING C/D/I. BP STABLE, HR 60-70'S, NSR. O2 SATS LOW-MID 90'S. WILL CONTINUE TO MONITOR.
[2020-02-23 08:30] LABS: Hematocrit 37.8 % (37.0-53.0); Hemoglobin 12.2 g/dL (13.5-17.5); Mean Corpuscular HGB 32.8 pg (26.0-34.0); Mean Corpuscular HGB Conc 32.3 g/dL (31.5-36.5); Mean Corpuscular Volume 102 fL (80-100); Mean Platelet Volume 11.2 fL (9.1-12.4); Platelet Count 232 K/mm3 (150-400); RDW Coefficient Variation 13.9 % (11.7-14.2); Red Blood Cell Count 3.72 M/mm3 (4.30-5.90)
[2020-02-23 08:44] LABS: Alanine Aminotransfer (ALT/SGP 22 U/L (12-78); Albumin, Blood 1.6 g/dL (3.4-5.0); Albumin/Globulin Ratio 0.4 (0.8-1.8); Alk Phos 31 U/L (50-136); Anion Gap 4 mmol/L (6-16); Aspartate Aminotrans (AST/SGOT 24 U/L (12-37); Bilirubin, Total 0.7 mg/dL (0.1-1.0); Blood Urea Nitrogen 23 mg/dL (8-24); Bun/Creatinine Ratio 45.6 (12.0-20.0); CO2, Blood 34 mmol/L (21-32); Calcium, Blood 8.3 mg/dL (8.5-10.1); Chloride, Blood 104 mmol/L (98-108); Globulin, Blood 4.3 g/dL (2.2-4.0); Glomerular Filtration Rate >60 (60-); Glucose, Blood 84 mg/dL (70-99); Potassium, Blood 3.9 mmol/L (3.5-5.5); Sodium, Blood 142 mmol/L (136-145); Total Protein, Blood 5.9 g/dL (6.4-8.2)
[2020-02-23 08:55] LABS: BAND PERCENT MAN 1 % (0-8); BASOPHILS PERCENT MAN 0 % (0-2); EOSINOPHILS ABSOLUTE MAN 0.14 K/mm3 (0.00-0.68); EOSINOPHILS PERCENT MAN 1 % (0-6); LYMPHOCYTES ABSOLUTE MAN 1.97 K/mm3 (0.84-5.20); LYMPHOCYTES PERCENT MAN 14 % (21-46); METAMYELOCYTE ABSOLUTE MAN 0.14 K/mm3 (0.00-0.00); METAMYELOCYTE PERCENT MAN 1 % (0-0); MONOCYTES ABSOLUTE MAN 0.42 K/mm3 (0.16-1.47); MONOCYTES PERCENT MAN 3 % (4-13); MYELOCYTE ABSOLUTE MAN 0.14 K/mm3 (0.00-0.00); MYELOCYTE PERCENT MAN 1 % (0-0); NEUTROPHILS ABSOLUTE MAN 11.28 K/mm3 (1.96-9.15); SEG NEUTROPHILS PERCENT MAN 79 % (41-73); TOTAL CELLS COUNTED 100
--- NOTE | 2020-02-23 10:09 | NUR ---
SEDATION VACATION PROPOFOL ON STANDBY FOR APPROX 1.5 HOURS. PT OPENS EYES TO VERBAL STIMULI. DOES NOT FOLLOW DIRECTIONS. WITHDRAWS HEAD AND LEFT LEG FROM PAINFUL STIMULI. GRIMACES. NO MOVEMENT NOTED TO RIGHT LEG, OR BILATERAL ARMS. PT RR INCREASED TO HIGH 20'S. VENT ALARMING FOR HIGH PEAK PRESSURES, 40-50'S. RESTARTED PROPOFOL AT 30 MCG/KG/MIN.
--- NOTE | 2020-02-23 15:07 | NUR ---
PT PRONED PT PRONED c RT AND THREE STAFF MEMBERS s DIFFICULTY. TUBE FEEDS ON HOLD FOR ONE HOUR. LACRILUBE APPLIED TO EYES AND PAPER TAPE. MEPLIEX TO KNEES BILATERALLY. HEAD MIDLINE ON END TABLE c GEL PADS. RIGHT ARM UP. VENT SETTINGS UNCHANGED. O2 SATS 95% AT THIS TIME. WILL CONTINUE TO MONITOR AND TURN q2.
--- NOTE | 2020-02-23 17:55 | NUR ---
SHIFT SUMMARY PT REMAINS INTUBATED AND SEDATED. VENT SETTINGS AC 22/500/10/50%. PROPOFOL GTT AT 30 MCG/KG/MIN. PT RESPONSIVE TO VERBAL STIMULI. DOES NOT FOLLOW COMMANDS. LUNGS CLEAR. TUBE FEEDS ON STANDBY. WRIGHT PATENT, DRAINING DARK YELLOW URINE TO GRAVITY. RECTAL TUBE IN PLACED, DRAINED SCANT AMOUNT OF BROWN LOOSE STOOL THIS SHIFT. PT CURRENTLY PRONED. VSS. WILL CONTINUE TO MONITOR UNTIL REPORT TO ONCOMING NURSE.
--- NOTE | 2020-02-23 19:00 | NUR ---
ASSUMED CARE OF PT, REPORT RECEIVED AT ROOM DOORWAY, ALL GTTS WELL VENT SETTINGS ARE FULLY VISIBLE AND VERIFIED WITH OFFGOING RN. PT IS NOTED IN PRONE POSITION WITH LEFT ARM UP, RIGHT ARM DOWN, HEAD FACING LEFT AND PILLOWS UNDER LEFT HIP/CHEST. SATS ARE LOW 90S WITH VENT SETTINGS AC 22, TV 500, FIO2 40% AND PEEP 10, CURRENT RATE 22-24/MIN, SOME BREATH STACKING IS NOTED, WILL TITRATE SEDATION NEEDED FOR VENT TOLERANCE. PROPOFOL IS CURRENTLY AT 40 MCG/KG/MIN, FENTANYL AT 25 MCG/HR, NS TKO WITH FENTANYL GTT. BP REMAINS STABLE, SINUS RHYTHM NOTED ON MONITOR, RATE 60S AT THIS TIME. WILL PLAN FOR RT ASSISTANCE WITH REPOSITIONING PT FOR PROTECTION OF ETT, PLAN TO TURN HEAD EVERY 2 HOURS WITH BODY REPOSITIONING, WILL MAINTAIN TAPE TO EYES AND LACRI-LUBE WITH 2200 POSITION CHANGE AND FOLLOWING RETURN TO SUPINE AT 0200, WILL HOLD VISBIOME UNTIL PT IS RETURNED TO SUPINE AT 0200 AND RESUME TUBE FEEDING PER ORDERS AT THAT TIME.
--- NOTE | 2020-02-24 02:25 | NUR ---
REPOSITION SUPINE PT REPOSITIONED SUPINE WITH RT, GROUNDSKEEPING YARDMAN, PT ANIMAL HUMANE AGENT SUPERVISOR, AND THIS RN, EQUAL BILAT BREATH SOUNDS AT COMPLETION OF RETURN TO SUPINE POSITION, ETT IS NOTED TO HAVE COPIOUS AMOUNTS OF ORAL SECRETIONS, SECURITY OF PINK TAPE TO BITE BLOCK AND OLIVIA DEVICE IS UNCERTAIN, ETT IS CLEANED WITH DETACHOL BY RT AND RESECURED WITH PINK TAPE AND OLIVIA. EQUAL BILAT BREATH SOUNDS CONTINUE, TUBE DEPTH 27 AT TEETH.
--- NOTE | 2020-02-24 06:21 | NUR ---
PT REMAINED PRONE UNTIL 0225 THIS AM, DID REQUIRE INCREASED SEDATION WHILE PRONE FOR BREATH STACKING AND HIGH PRESSURE ALARM WITH SECOND BREATH OF STACK, FIO2 INCREASED TO 45, THEN 50% WHILE PT WAS PRONE IN ORDER TO MAINTAIN SATS. SATS MAINTAINED WITH THESE SETTINGS AFTER RETURNING TO SUPINE WITH HOB ELEVATED UNTIL PT WAS POSITIONED ON LEFT SIDE, FOLLOWING LEFT SIDE LYING POSITION, PT SATS DECREASED TO LOW 80S AND FIO2 WAS INCREASED TO 60 THEN 65% FOR SATS 89% WITH GOOD SIGNAL, WHEN PT RETURNED TO SUPINE WITH NEXT TURN, SATS WERE NOTED TO INCREASE TO 92% WITHOUT CHANGES IN VENT SETTINGS. SEDATION VACATION DONE THIS AM FROM 0305 TO 0345. PT WAS NOTED TO HAVE VERY SLIGHT MOVEMENT OF RIGHT TOES OTHERWISE CONTINUES TO ONLY MOVE HEAD, EYES, AND MOUTH. SEDATION WAS RESUMED SECONDARY TO PT COUGHING/GAGGING ON ETT, RESP RATE INCREASE TO 30S, AND SATS DECREASED TO MID 80S, DID NOT FOLLOW COMMANDS, DID NOT MAKE EYE CONTACT, DID OPEN EYES WITH TOUCH TO EXTREMITIES X 4. LUNGS CLEAR WITH DIM BASES MOST OF THIS SHIFT, OCCASIONALLY COARSE HOWEVER CLEAR WITH SUCTION. REMAINS IN SINUS RHYTHM AND PRESSURES MAINTAINING STABLE THROUGHOUT NOC. TUBE FEEDS RESUMED AT 30 ML/HR FOR 1ST HOUR AFTER RETURNING TO SUPINE THEN INCREASED TO RATE OF 65 ML/HR PER ORDERS, ABD REMAINS SOFT, RESIDUALS LESS THAN 10 ML THROUGHOUT SHIFT, AIR FLUSH AUSCULTATED OVER LUQ PRIOR TO RESUMING TUBE FEEDING. TEMP PROBE WRIGHT REMAINS IN PLACE DRAINING CLEAR GREEN URINE. REDDENED AREA THAT WAS NOTED TO RIGHT FOREHEAD AFTER RETURNING TO SUPINE HAS RESOLVED OF THIS TIME. PICC DRESSING WAS CHANGED THIS SHIFT AND PICC LINE IS NOW EXPOSED 7 CM INSTEAD OF 4, BLOOD DRAWS EASILY FROM ALL PORTS, RADIO ENGINEERING TEACHER WAS NOTIFIED, OTHERWISE NO ACUTE CHANGES THIS SHIFT.
--- NOTE | 2020-02-24 09:07 | NUR ---
ASSUMED CARE AT 0700 PT LAYING IN BED INTUBATED WITH VENT SETTINGS AC 22, TV 500, PEEP 10, FIO2 65%. PT RESPONDS TO NOXIOUS STIMULI BUT DOES NOT FOLLOW COMMANDS TO MOVE EXTREMITIES. PROPOFOL INFUSING AT 45MCG/KG/MIN. FENTANYL VAULT INSTALLER INFUSING AT 25MCG/HR. HR 70'S. BP STABLE. VHP INFUSING VIA OG AT 65ML/HR. RECTAL TUBE AND WRIGHT PATENT DRAINING TO GRAVITY. PICC LINE NOTED TO BE 7CM OUT; WILL NOTIFY PICC NURSE IKE SWEET. SEE SHIFT ASSESSMENT FOR FULL ASSESSMENT.
--- NOTE | 2020-02-24 14:43 | NUR ---
PT PRONED PT PLACED IN PRONE POSITION WITH THE ASSISTANCE OF RT, AND THREE RN'S. PT TOLERATED REPOSITIONING WELL WITH O2 SAT >90. VHP DECREASED TO 30ML/HR AT 1200 AND THEN TURNED OFF AT 1300. OG NOW CLAMPED.
--- NOTE | 2020-02-24 18:12 | NUR ---
END OF SHIFT SUMMARY PT CONT TO BE INTUBATED WITH VENT SETTINGS AC 22, TV 500, PEEP 10, FIO2 35%. SMALL AMOUNT OF SECREATIONS SUCTIONED T/O SHIFT. PT RESPONDS TO NOXIOUS STIMULI, SPECIFICALLY ORAL CARE, BUT PT DOES NOT FOLLOW COMMANDS REGARDING MOVING EXTREMITIES. PROPOFOL INFUSING AT 45MCG/KG/MIN. FENTANYL INFUSING AT 25MCG/HR. MAX TEMP 100.9. SBP 110-150. HR 60-70'S. OG CLAMPED AT THIS TIME DUE TO PRONE POSITION. RECTAL TUBE AND WRIGHT CATH PATENT AND DRAINING TO GRAVITY. PT PRONED AT 1415 FOR NEXT 12HR. PT CALLED AND TALKED TO PT. DR MARISCAL INQUIRED [facility] ABOUT ECMO, PT IS NOT A CANADIT AT THIS TIME. WILL REPORT TO PM RN WHEN AVAILABLE.
--- NOTE | 2020-02-24 20:00 | NUR ---
ASSUMED CARE OF PT AT 1915. REPORT RECEIVED. PT PRESENTS IN BED. VENTED AND PRONE. AC 22, Tv 500, FIO2 65%, PEEP 10. SPOKE TO DR MARISCAL CONCERNING PLAN OF CARE FOR THIS NIGHT. WILL UNPRONE NEAR 0200 AM. DISCUSSED WITH RESPIRATORY CARE THIS PLAN. SEE ASSESSMENT FLOW FOR DETAILS. PT DOES HAVE CLEAR COLORED NASAL SECRETIONS. THIS CLEARED WITH SUCTIONING. ETT SUCTIONING DONE WELL. MODERATE AMOUNT OF CREAM COLORED SECRETIONS. ORDERS RECEIVED FOR SPUTUM SAMPLE. WILL OBTAIN WHEN ABLE. WILL REVIEW CHART AND PLAN OF CARE FOR THIS PT.
--- NOTE | 2020-02-24 22:15 | NUR ---
PT'S , DU, CALLS FOR UPDATE. THIS GIVEN. ALSO SHE WISHED TO BE ABLE TO SPEAK AT PT SO ROOM PHONE CALL DONE. HELD PHONE UP TO PT'S EAR FOR HER. DID REDUCE SEDATION FOR PT TO BE MORE AWARE OF HIS . DU PRAYED FOR HER . AFTER PHONE CALL, PT PLACED BACK TO 50 MCG'S OF PROPOFOL WHICH WAS PRIOR TO CALL. NO NOTICEABLE REACTION FROM PT. WILL CONTINUE TO MONITOR PT.
--- NOTE | 2020-02-25 00:38 | NUR ---
WITH SLIGHT POSITION CHANGE WITH PT, HE BEGINS TO 'STACK' RESPIRATIONS. DID INCREASE FENTANYL DRIP TO 50 MCG/HOUR PER DISCUSSION EARLIER WITH DR MARISCAL. INCREASED SEDATION TO 55 MCG'S PROPOFOL. WILL EVALUATE AFFECTIVENESS.
--- NOTE | 2020-02-25 03:00 | NUR ---
FULL BEDBATH COMPLETED. PT UNPRONE WITH ASSIST OF FOUR STAFF WITH RESPIRATORY THERAPY. NO ISSUES TO NOTE. PT DOES HAVE PERIOD OF DESATURATIONS THAT SLOWLY IMPROVES. PT HAS STRONG COUGH AND IS ABLE TO MOVE SOME SECRETIONS THAT HAVE BEEN SUCTIONED PER ETT. THICK AND LIGHT YELLOW IN COLOR.
[2020-02-25 04:26] LABS: Base Excess Venous 7.3 mmol/L; Bicarbonate Venous 30.2 mmol/L (24.0-30.0); PCO2 Venous 45.2 mmHg (38-42); PO2 Venous 104 mmHg (38-42); pH Blood Venous 7.45 (7.34-7.37)
[2020-02-25 04:28] LABS: Hematocrit 37.4 % (37.0-53.0); Hemoglobin 11.8 g/dL (13.5-17.5); Mean Corpuscular HGB 32.2 pg (26.0-34.0); Mean Corpuscular HGB Conc 31.6 g/dL (31.5-36.5); Mean Corpuscular Volume 102 fL (80-100); Mean Platelet Volume 10.4 fL (9.1-12.4); Platelet Count 225 K/mm3 (150-400); RDW Coefficient Variation 13.5 % (11.7-14.2); RDW Standard Deviation 50.9 fL (35.1-46.3); Red Blood Cell Count 3.67 M/mm3 (4.30-5.90); White Blood Cell Count 15.08 K/mm3 (4.00-11.30)
[2020-02-25 04:48] LABS: BAND PERCENT MAN 3 % (0-8); BASOPHILS PERCENT MAN 0 % (0-2); EOSINOPHILS ABSOLUTE MAN 0.15 K/mm3 (0.00-0.68); EOSINOPHILS PERCENT MAN 1 % (0-6); LYMPHOCYTES ABSOLUTE MAN 3.01 K/mm3 (0.84-5.20); LYMPHOCYTES PERCENT MAN 20 % (21-46); METAMYELOCYTE PERCENT MAN 2 % (0-0); MONOCYTES PERCENT MAN 6 % (4-13); MYELOCYTE ABSOLUTE MAN 0.15 K/mm3 (0.00-0.00); MYELOCYTE PERCENT MAN 1 % (0-0); NEUTROPHILS ABSOLUTE MAN 10.55 K/mm3 (1.96-9.15); SEG NEUTROPHILS PERCENT MAN 67 % (41-73); TOTAL CELLS COUNTED 100
[2020-02-25 04:51] LABS: Anion Gap 5 mmol/L (6-16); Blood Urea Nitrogen 22 mg/dL (8-24); Bun/Creatinine Ratio 46.1 (12.0-20.0); CO2, Blood 30 mmol/L (21-32); Calcium, Blood 8.1 mg/dL (8.5-10.1); Chloride, Blood 106 mmol/L (98-108); Cholesterol 189 mg/dL (50-200); Creatinine, Blood 0.48 mg/dL (0.60-1.20); Glomerular Filtration Rate >60 (60-); Glucose, Blood 90 mg/dL (70-99); Phosphorus, Blood 3.4 mg/dL (2.5-4.9); Sodium, Blood 141 mmol/L (136-145); Triglycerides 197 mg/dL (30-160)
--- NOTE | 2020-02-25 06:27 | NUR ---
PT HAS COMPLETED 12 HOUR PRONING. TOLERATED THIS FOR THE MOST PART. DID INCREASE FENTANYL DRIP TO 50 MCG'S/HOUR. PROPOFOL CURRENT AT 45 MCG'S/KG. TUBE FEEDING PER CYCLIC ORDER AT 65 ML/HOUR. 28 ML RESIDUAL NOTED. LUNG SOUNDS HAVE IMPROVED THROUGHOUT THE SHIFT WITH SUCTIONING. VERY LIGHT YELLOW SECRETIONS RETURNED. PT'S CALLS THIS AM AND UPDATE GIVEN. WILL CONTINUE TO MONITOR PT, AND WILL REPORT OFF TO ONCOMING RN.
--- NOTE | 2020-02-25 06:44 | NUR ---
FOLLOW UP NOTE: PT DID HAVE SEDATION VACATION THIS AM. NOTED WORK OF BREATHING INCREASED, AND SATURATIONS BEGIN TO DROP TO 85 PERCENT DURING SEDATION BREAK. CURRENTLY SEDATED. DOES RESPOND TO STIMULI THOUGH DOES NOT FOLLOW ANY COMMANDS.
--- NOTE | 2020-02-25 08:58 | NUR ---
ASSUMED CARE AT 0700 PT LAYING IN BED AND CONT TO BE INTUBATED WITH VENT SETTINGS AC 22, TV 500, PEEP 10, FIO2 70%. SEDATION VACATION DURING ASSESSMENT AND PT WAS ABLE TO OPEN EYES TO SOUNDS, TRACKS MINIMAL MOVEMENT WITH EYES, AND SLIGHTLY TURNS HEAD TO SOUND. PT SEEMED TO HAVE THE INTENT OF MOVING EXTREMITIES BUT WAS NOT SUCCESSFUL. SEDATION VACATION ENDED WHEN PT INCREASED COUGH AGAINST THE VENT AND RR INCREASED TO 35 CONSISTANTLY. NOW PROPOFOL INFUSING AT 45MCG/KG/MIN AND FENTANYL INFUSING AT 50MCG/HR. HR 70-80. BP STABLE. TEMP 100.2. VHP INFUSING VIA OG AT 65ML/HR (GOAL) WITH 30ML WATER FLUSHES Q4HR. RECTAL TUBE AND WRIGHT CATH PATENT AND DRAINING TO GRAVITY. SEE SHIFT ASSESSMENT FOR FULL ASSESSMENT.
--- NOTE | 2020-02-25 15:03 | NUR ---
PT PRONED PT PLACED IN PRONE POSITION AT 1430. RT AND THREE RN'S ASSISSTED WITH REPOSITIONING. PT TOLERATED WELL WITH O2 SAT >90%, HR 60'S. VHP DECREASED TO 30ML/HR AT 1200, AND THEN STOPED AT 1300. PT TO BE IN PRONE POSITION FOR 12HR.
--- NOTE | 2020-02-25 18:06 | NUR ---
END OF SHIFT SUMMARY PT CONT TO BE INTUBATED WITH VENT SETTINGS AC 22, TV 500, PEEP 10, FIO2 60%. PT PUT IN PRONE POSITION AT 1430 FOR THE NEXT 12HR, PT TO BE SUPINE AGAIN AT 0200. PT RESPONDS TO NOXIOUS STIMULI, SPECIFICALLY ORAL CARE, BUT DOES NOT FOLLOW COMMANDS OF MOVING EXTREMITIES. PROPOFOL INFUSING AT 45MCG/KG/MIN. FENTANYL INFUSING AT 50MCG/HR. MAX TEMP 100.4. HR 60-70'S. SBP 100-140. OG CLAMPED DUE TO PT IN PRONE POSITION. RECTAL TUBE AND WRIGHT CATH PATENT AND DRAINING TO GRAVITY. PT CALLED AND TALKED TO PT TWICE TODAY. WILL REPORT TO PM RN WHEN AVAILABLE.
--- NOTE | 2020-02-25 22:42 | NUR ---
ASSUMED PT CARE FROM SHANTE AT 1915 PT INTUBATED AND SEDATED. VENT AC 22, VT 500, PEEP 10, FIO2 60%. PROPOFOL AT 50MCG/KG/MIN AND FENTANYL GTT AT 50MCG/HR. PEAK PRESSURES NOTED TO BE 35-55; RESP RATE 25-35. CALL TO DR. CARR WITH ORDERS TO GIVE 1-4MG OF ATIVAN Q1HR PRN. PT IN THE PRONE POSITION. OG CLAMED AT THIS TIME. RECTAL TUBE AND WRIGHT CATHETER BOTH PATENT AND DRAINING TO GRAVITY. PICC LINE TO RUE; INFUSING. CALLED FOR AN UPDATE. WILL CONTINUE TO MONITOR.
--- NOTE | 2020-02-26 03:02 | NUR ---
REPOSITIONED SUPINE PT WAS SCHEDULED TO BE UNPRONED AT 0200. RT AT BEDSIDE TO MANAGE AIRWAY AND NURSING STAFF X3 IN ROOM TO ASSIST WITH LINES, TUBES, CORDS, AND SAFETY OF PATIENT REPOSITIONING. CARDIAC LEAD PLACED ON FRONT SIDE, PT REPOSITIONED TO RIGHT SIDE TO MAINTAIN RECTAL TUBE PATENCY. VENT AC 22, VT 500, PEEP 10, FIO2 70%; SPO2 >90%. PROPOFOL INCREASED TO 70MCG/KG/MIN; FENTANYL REMAINS AT 50MCG/HR; HOWEVER, PT REQUIRED ANOTHER 50MCG OF FENTANYL IV PUSH FOR ADJUNCT SEDATION D/T BREATH STACKING AND ELEVATED PEAK PRESSURES IN THE 50'S. PT MEDICATED WITH ATIVAN EARLIER WITH MINIMAL TO NO EFFECT.
[2020-02-26 04:55] LABS: Hematocrit 34.5 % (37.0-53.0); Hemoglobin 10.9 g/dL (13.5-17.5); Mean Corpuscular HGB 32.4 pg (26.0-34.0); Mean Corpuscular HGB Conc 31.6 g/dL (31.5-36.5); Mean Corpuscular Volume 103 fL (80-100); Mean Platelet Volume 10.4 fL (9.1-12.4); Platelet Count 213 K/mm3 (150-400); RDW Coefficient Variation 13.4 % (11.7-14.2); RDW Standard Deviation 51.4 fL (35.1-46.3); Red Blood Cell Count 3.36 M/mm3 (4.30-5.90); White Blood Cell Count 14.19 K/mm3 (4.00-11.30)
[2020-02-26 05:11] LABS: Anion Gap 3 mmol/L (6-16); Blood Urea Nitrogen 21 mg/dL (8-24); Bun/Creatinine Ratio 43.7 (12.0-20.0); CO2, Blood 33 mmol/L (21-32); Calcium, Blood 8.2 mg/dL (8.5-10.1); Chloride, Blood 106 mmol/L (98-108); Creatinine, Blood 0.48 mg/dL (0.60-1.20); Glomerular Filtration Rate >60 (60-); Glucose, Blood 94 mg/dL (70-99); Potassium, Blood 3.3 mmol/L (3.5-5.5); Sodium, Blood 142 mmol/L (136-145)
[2020-02-26 06:08] LABS: BAND PERCENT MAN 3 % (0-8); BASOPHILS PERCENT MAN 0 % (0-2); EOSINOPHILS ABSOLUTE MAN 0.28 K/mm3 (0.00-0.68); EOSINOPHILS PERCENT MAN 2 % (0-6); LYMPHOCYTES ABSOLUTE MAN 1.41 K/mm3 (0.84-5.20); LYMPHOCYTES PERCENT MAN 10 % (21-46); METAMYELOCYTE ABSOLUTE MAN 0.14 K/mm3 (0.00-0.00); METAMYELOCYTE PERCENT MAN 1 % (0-0); MONOCYTES ABSOLUTE MAN 1.27 K/mm3 (0.16-1.47); MONOCYTES PERCENT MAN 9 % (4-13); MYELOCYTE ABSOLUTE MAN 0.42 K/mm3 (0.00-0.00); MYELOCYTE PERCENT MAN 3 % (0-0); NEUTROPHILS ABSOLUTE MAN 10.64 K/mm3 (1.96-9.15); SEG NEUTROPHILS PERCENT MAN 72 % (41-73); TOTAL CELLS COUNTED 100
--- NOTE | 2020-02-26 06:16 | NUR ---
END OF SHIFT SUMMARY VENT SETTINGS AC 22, VT 500, PEEP 10, FIO2 70%. SPO2 VARIES DEPENDING ON PT'S POSITIONING. PEAK PRESSURES REMAIN ELEVATED IN THE 50'S WITH BREATH STACKING NOTED T/O MOST OF SHIFT. HOWEVER, WHEN REPOSITIONED SUPINE AND TO LEFT SIDE, ELEVATED PEAK PRESSURES HAVE STAYED IN THE 30'S WITHOUT ANY BREATH STACKING NOTED. PROPOFOL REMAINS AT 55MCG/KG/MIN, FENTANYL AT 50MCG/MIN. POSITIVE GAG AND COUGH. EARLIER IN SHIFT PROPOFOL WAS UP TO 70MCG/KG/MIN WITH ADJUNCT ATIVAN AND FENTANYL USED D/T CONTINUOUS HIGH PEAK PRESSURES AND BREATH STACKING; HOWEVER, THESE INTERVENTIONS WERE UNSUCCESSFUL AND PROPOFOL TITRATED BACK DOWN TO 55MCG/KG/HR D/T ABSENT GAG/COUGH REFLEXES. PICC TO MARILU CONTINUES TO INFUSE WITHOUT ISSUE. WRIGHT CATHETER PATENT AND DRAINING TO GRAVITY; DARK GREEN/TEA COLORED URINE. RECTAL TUBE PUT OUT MINIMAL AMOUNTS OF LOOSE, BROWN STOOL. VITAL HIGH PROTEIN RESTARTED AFTER PT WAS PLACED BACK IN THE SUPINE POSITION; CURRENTLY AT GOAL OF 65MLS/HR. WILL CONTINUE TO MONITOR UNTIL REPORT IS HANDED OFF TO ONCOMING RN.
--- NOTE | 2020-02-26 09:30 | NUR ---
ASSUMED CARE OF PT AT 0700. REPORT FROM ADOLFO SWEET. PT INTUBATED AND SEDATED. VENT SETTINGS AC 22/500/10/70%, PROPOFOL GTT 55 MCG/KG/MIN AT START OF SHIFT. LUNGS COARSE THROUGHOUT. PROPOFOL PLACED ON STANDBY FOR APPROX 1 HOUR. PT WITHDRAWS FROM ORAL CARE. DOES NOT WITHDRAW EXTREMITIES FROM PAINFUL STIMULI. DOES NOT OPEN EYES TO VERBAL STIMULI. COUGH, GAG, CORNEAL REFLEX PRESENT. WHILE PROPOFOL ON STANDBY, PEAK PRESSURES INCREASED TO 50'S. RR INCREASED TO MID 20'S. O2 SATS DECREASED TO MID 80'S. RT NOTIFIED. RESTARTED PROPOFOL GTT. ABD ROUND, SOFT, NON TENDER. HYPOACTIVE BT. TUBE FEEDING AT GOAL OF 65 ML/HR c 30 ML FLUSHES q4HR. RESIDUALS 65 ML THIS AM. TEMP 100.6, MEDICATED c TYLENOL. DIAPHORETIC. GENERALIZED 1+ EDEMA TO ALL EXTREMITIES. PICC TO LUE, DRESSING C/D/I. WRIGHT PATENT, DRAINING GREEN/YELLOW URINE TO GRAVITY. RECTAL TUBE IN PLACE, DRAINING BROWN, LOOSE STOOL TO GRAVITY. HR INCREASED TO 100'S. BP STABLE. AWAITING DR CARR ASSESSMENT. WILL CONTINUE TO MONITOR.
--- NOTE | 2020-02-26 14:00 | NUR ---
PT PRONED PT PLACED IN PRONE POSTION c RT AND THREE STAFF MEMBERS. NO DIFFICULTIES.
--- NOTE | 2020-02-26 17:50 | NUR ---
SHIFT SUMMARY PT REMAINS INTUBATED AND SEDATED. VENT SETTINGS AC 22/500/10/75%. PROPOFOL GTT 45 MCG/KG/MIN, FENTANYL GTT 50 MCG/HR. PT WITHDRAWS FROM ORAL CARE. NO RESPONSE TO EXTREMITIES. COUGH/GAG REFLEX PRESENT. LUNGS IMPROVED SINCE PRONED AT 1400. DIMINISHED IN RIGHT LOWER BASE. MINIMAL SECRETIONS THROUGH ETT. TUBE FEEDS ON HOLD. MEPLEX PLACED ON KNEES. RECTAL TUBE IN PLACE, SCANT AMOUNT OF STOOL IN BAG. 800 ML GREEN YELLOW URINE OUT. WRIGHT PATENT AND DRAINING TO GRAVITY. RIGHT LOWER LEG COOL, PULSES BY DOPPLER. DR CARR AWARE. BP STABLE. WILL CONTINUE TO MONITOR UNTIL REPORT TO ONCOMING NURSE.
--- NOTE | 2020-02-26 21:00 | NUR ---
ASSUMED PT CARE AT 1915 FROM [facility] PT REMAINS INTUBATED AND SEDATED. VENT SETTINGS AC 22, VT 500, PEEP 10, FIO2 70%; RESP RATE 25-30'S WITH OCCASIONAL PEAK PRESSURE ALARMS IN THE 50'S. PROPOFOL AT 45MCG/KG/MIN, FENTANYL AT 50MCG/HR. PERFORMED SEDATION VACATION AT START OF SHIFT WITH PROPOFOL TURNED OF FOR APPROXOMATELY 45 MINUTES. PT ABLE TO OPEN EYES TO VERBAL STIMULUS; HOWEVER, UNABLE TO FOLLOW COMMANDS. WITHDRAWALS FROM NOXIOUS STIMULI. LUNG SOUNDS REMAIN COARSE T/O ALL LOBES. PT IS CURRENTLY IN THE PRONE POSITION WITH SCHEDULED UNPRONING AROUND 0200. CALLED FROM IN PT'S ROOM IN ORDER TO TALK WITH PT DURING HIS SEDATION VACATION. SHE PLAYED THE PIANO AND THEN SPOKE TO HER . DURING THIS TIME THE PT REMAINED CALM AND DID NOT SET OFF ANY HIGH PEAK PRESSURE ALARMS, AND HIS RESP RATE REMAINED <30. AFTER WAS DONE SPEAKING WITH PT, HE RECEIVED A PARTIAL BATH AND WAS REPOSITOINED FOR COMFORT. PROPOFOL RESTARTED AT 45MCG/KG/HR. WILL CONTINUE TO MONITOR.
--- NOTE | 2020-02-27 00:30 | NUR ---
UNPRONING WHILE REPOSITIONING PT WHILE HE WAS PRONED, HIGH PEAK PRESSURES CONTINUED TO ALARM T/O. RT ASSESSED TUBE PLACEMENT AND NOTED BITE BLOCK HAD SLIDE BACK. THEREFORE, HAD TO UNPRONE IN ORDER TO ADJUST BITE BLOCK TO ENSURE PATENT AIRWAY.
[2020-02-27 03:38] LABS: BASOPHILS PERCENT AUTO 1 % (0-2); EOSINOPHILS ABSOLUTE AUTO 0.12 K/mm3 (0.00-0.68); EOSINOPHILS PERCENT AUTO 1 % (0-6); Hematocrit 37.5 % (37.0-53.0); Hemoglobin 11.8 g/dL (13.5-17.5); IMMATURE GRAN ABSOLUTE AUTO 0.81 K/mm3 (0.00-0.10); IMMATURE GRAN PERCENT AUTO 5 % (0-1); LYMPHOCYTES ABSOLUTE AUTO 4.45 K/mm3 (0.84-5.20); LYMPHOCYTES PERCENT AUTO 25 % (21-46); MONOCYTES ABSOLUTE AUTO 0.93 K/mm3 (0.16-1.47); MONOCYTES PERCENT AUTO 5 % (4-13); Mean Corpuscular HGB 32.3 pg (26.0-34.0); Mean Corpuscular HGB Conc 31.5 g/dL (31.5-36.5); Mean Corpuscular Volume 103 fL (80-100); Mean Platelet Volume 10.1 fL (9.1-12.4); NEUTROPHILS ABSOLUTE AUTO 11.35 K/mm3 (1.96-9.15); NEUTROPHILS PERCENT AUTO 64 % (41-73); Platelet Count 253 K/mm3 (150-400); RDW Coefficient Variation 13.4 % (11.7-14.2); RDW Standard Deviation 50.6 fL (35.1-46.3); Red Blood Cell Count 3.65 M/mm3 (4.30-5.90); White Blood Cell Count 17.76 K/mm3 (4.00-11.30)
[2020-02-27 03:59] LABS: Anion Gap 4 mmol/L (6-16); Blood Urea Nitrogen 18 mg/dL (8-24); Bun/Creatinine Ratio 37.8 (12.0-20.0); CO2, Blood 33 mmol/L (21-32); Calcium, Blood 8.4 mg/dL (8.5-10.1); Chloride, Blood 104 mmol/L (98-108); Creatinine, Blood 0.48 mg/dL (0.60-1.20); Glomerular Filtration Rate >60 (60-); Glucose, Blood 90 mg/dL (70-99); Phosphorus, Blood 3.4 mg/dL (2.5-4.9); Potassium, Blood 3.9 mmol/L (3.5-5.5); Sodium, Blood 141 mmol/L (136-145)
[2020-02-27 05:27] LABS: PCO2 Arterial 54.6 mmHg (35-45); PO2 Arterial 65.2 mmHg (80-100); pH Blood Arterial 7.39 (7.35-7.45)
--- NOTE | 2020-02-27 05:55 | NUR ---
END OF SHIFT SUMMARY PT REMAINS SUPINE; UNABLE TO TOLERATE REPOSITIONING TO LEFT SIDE WHILE SUPINE. PEAK PRESSURES CONTINUOUSLY STAY AT 55 WITH EVERY BREATH; THEFEFORE, PT HAS BEEN ROTATED BETWEEN BACK AND RIGHT SIDE. SEE ASSUMED CARE NOTE REGARDING SEDATION VACATION. VENT SETTINGS: AC 22, VT 500, PEEP 10, FIO2 100%. PROPOFOL IS AT 55MCG/KG/MIN, FENTANYL AT 50MCG/HR. VITAL HIGH PROTEIN AT GOAL OF 65MLS/HR. WRIGHT CATHETER PATENT AND DRAINING GREEN/JONO COLORED URINE TO GRAVITY. RECTAL TUBE REMAINS IN PLACE, BUT MINIMAL OUTPUT THIS SHIFT; BOWEL TONES REMAIN HYPOACTIVE. BILATERAL LOWER EXTREMITIES REMAIN COOL TO THE TOUCH; HOWEVER, PULSES PALPABLE. WILL CONTINUE TO MONITOR UNTIL REPORT IS HANDED OFF TO ONCOMING RN.
--- NOTE | 2020-02-27 06:30 | NUR ---
SPOKE WITH CALLED FOR AN UPDATE. TOUCHED BASE ON CODE STATUS IN REGARDS TO PT'S OVERALL STATUS AND DECLINE IN CONDITION. VERY UNDERSTANDABLE THAT A CHANGE IN CODE STATUS DOESN'T MEAN THAT WE WILL STOP ALL TREATMENTS, BUT IF THE INEVITABLE WERE TO HAPPEN, WOULD THE PT WANT CPR OR NOT SINCE WE ARE ALREADY TREATING HIS UNDERLYING CONDITION. VERBALIZED UNDERSTANDING, BUT REASSURED HER THAT I WOULD ASK PALLIATIVE CARE TO ALSO HAVE THIS DISCUSSION WITH HER.
--- NOTE | 2020-02-27 08:00 | NUR ---
ASSUMED CARE OF PT AT 0700. REPORT FROM ADOLFO SWEET. PT INTUBATED AND SEDATED. VENT SETTINGS AC 22/500/10/100%. PROPOFOL GTT 55 MCG/KG/MIN, FENTANYL GTT 50 MCG/HR. COUGH/GAG REFLEX, CORNEAL REFLEX. ETT AT 25 AT TEETH. PT DOES NOT WITHDRAW FROM PAINFUL STIMULI. WILL COMPLETE SEDATION VACATION LATER IN SHIFT. LUNGS CLEAR, DIMINISHED IN BASES. SMALL AMOUNT OF THICK YELLOW SECRETIONS THROUGH ETT. ABD ROUND, SOFT, NON TENDER. HYPOACTIVE BT. TUBE FEEDS AT 65 MG/HR c 30 ML FLUSHES q4 HR. 65 ML RESIDUAL THIS AM. GENERALIZED EDEMA TO EXTREMITIES. ELEVATED ON PILLOWS. LEFT FOOT CONTINUES TO BE COOL, RIGHT WARM, PULSE PALPABLE. RECTAL TUBE IN PLACE, DRAINING BROWN LOOSE STOOL TO GRAVITY. WRIGHT PATENT, DRAINING YELLOW/GREEN URINE TO GRAVITY. BP STABLE. O2 SATS LOW 90'S. ST, RATE 100'S. WILL CONTINUE TO MONITOR.
--- NOTE | 2020-02-27 12:40 | NUR ---
SEDATION VACATION PROPOFOL ON STANDBY FOR APPROX 1 HR, 15 MIN. PT OPENS EYES TO VERBAL STIMULI. DOES NOT FOLLOW COMMANDS. NO MOVEMENT TO EXTREMITIES NOTED, DOES NOT WITHDRAW THEM TO PAINFUL STIMULI. GRIMACES c CARE. RR INCREASED TO HIGH 20'S. OCCASIONAL PEAK PRESSURES, 50'S. RESTARTED PROPOFOL GTT AT 45 MCG/KG/MIN.
--- NOTE | 2020-02-27 17:37 | NUR ---
SHIFT SUMMARY PT REMAINS INTUBATED AND SEDATED, VENT SETTINGS AC 22/Pi15/Ti85/12/95%. PROPOFOL GTT 45 MCG/KG/MIN, FENTANYL 50 MCG/HR. PT PRONED AT 1400, REMAINS IN PRONE POSITION. TUBE FEEDS ON STANDBY. LUNGS COARSE THROUGHOUT. SMALL AMOUNT OF THICK YELLOW SECRETIONS THROUGH ETT. RECTAL TUBE IN PLACE, SCANT AMOUNT OF BROWN LIQUID STOOL IN BAG. PT DIURESED TODAY, WRIGHT PATENT, DRAINING TO GRAVITY, 2200 ML YELLOW/GREEN URINE OUT THIS SHIFT. PICC TO LUE, DRESSING C/D/I. BP STABLE, HR 70-100 THIS SHIFT. WILL CONTINUE TO MONITOR UNTIL REPORT TO ONCOMING NURSE.
--- NOTE | 2020-02-27 19:32 | NUR ---
ASSUMED PT CARE FROM MICKI CHACON PT REMAINS INTUBATED/SEDATED. VENT SETTINGS AC 22 WITH PC 15, PEEP 12, FIO2 95%; SPO2 >90%. RESP RATE 22 WITH VT>400. PT OCCASIONALLY WITH ATTEMPT TO STACK ANOTHER BREATH WITH A VT NOTED TO BE <20. PROPOFOL AT 45MCG/KG/MIN. FENTANYL AT 50MCG/HR. OG IS CLAMPED AT THIS TIME D/T PT BEING IN THE PRONE POSITION. WRIGHT CATHETER IS PATENT AND DRAINING TO GRAVITY; CLEAR JONO IN COLOR. RECTAL TUBE REMAINS PATENT WITH MINIMAL BROWN OUTPUT NOTED. NSR WITH BBB; HR 70-80'S. BP'S STABLE, SEE FLOWSHEET. TRANSFERRED INTO ROOM TO SPEAK TO . PHONE HELD TO PT'S EAR. SEDATION VACATION STARTED.
--- NOTE | 2020-02-27 20:30 | NUR ---
SEDATION VACATION PROPOFOL TURNED OFF; FENTANYL 50MCG/HR. PT NOTED TO WITHDRAWAL TO NOXIOUS STIMULI; HOWEVER, DID NOT OPEN HIS EYES OR FOLLOW ANY COMMANDS. SEDATION VACATION LASTED FOR ABOUT 45 MINUTES UNTIL HE STARTED COUGHING AND NOT TOLERATING THE VENT WELL, RESTARTED PROPOFOL AT 45MCG/KG/MIN.
--- NOTE | 2020-02-28 00:39 | NUR ---
REASSESSMENT/UPDATE ATTEMPTED TO REPOSITION PT ON LEFT SIDE WITH PILLOWS UNDER RIGHT SIDE; TURNED HEAD TO THE RIGHT AND PLACED RIGHT ARM UP AND LEFT ARM DOWN. HOWEVER, PT DIDN'T TOLERATE REPOSITION VERY WELL WITH TIDAL VOLUMES NOTED TO BE AROUND 200-350; THEREFORE, REPOSITIONED BACK TO RIGHT SIDE DOWN AND LEFT SIDE UP WITH TIDAL VOLUMES 400-500. TEMPERATURE CONTINUES TO ELEVATE; CURRENTLY 101.8; PLACED ICE PACKS UNDERNEATH BILATERAL ARMPITS AND IN GROIN. PLAN IS TO ADMINISTER TYLENOL WHEN PT IS REPOSITIONED SUPINE AT 0200.
[2020-02-28 04:24] LABS: Hemoglobin 11.6 g/dL (13.5-17.5); Mean Corpuscular HGB 32.4 pg (26.0-34.0); Mean Corpuscular HGB Conc 31.4 g/dL (31.5-36.5); Mean Corpuscular Volume 103 fL (80-100); Mean Platelet Volume 9.7 fL (9.1-12.4); Platelet Count 239 K/mm3 (150-400); RDW Coefficient Variation 13.4 % (11.7-14.2); RDW Standard Deviation 51.8 fL (35.1-46.3); Red Blood Cell Count 3.58 M/mm3 (4.30-5.90); White Blood Cell Count 16.71 K/mm3 (4.00-11.30)
[2020-02-28 04:42] LABS: Anion Gap 2 mmol/L (6-16); Blood Urea Nitrogen 19 mg/dL (8-24); Bun/Creatinine Ratio 38.2 (12.0-20.0); CO2, Blood 38 mmol/L (21-32); Calcium, Blood 8.5 mg/dL (8.5-10.1); Chloride, Blood 100 mmol/L (98-108); Glomerular Filtration Rate >60 (60-); Glucose, Blood 125 mg/dL (70-99); Magnesium, Blood 2.1 mg/dL (1.6-2.4); Phosphorus, Blood 3.1 mg/dL (2.5-4.9); Potassium, Blood 3.6 mmol/L (3.5-5.5); Sodium, Blood 140 mmol/L (136-145)
[2020-02-28 04:47] LABS: PCO2 Arterial 66.7 mmHg (35-45); PO2 Arterial 66.8 mmHg (80-100); pH Blood Arterial 7.37 (7.35-7.45)
--- NOTE | 2020-02-28 04:54 | NUR ---
END OF SHIFT SUMMARY PROPOFOL REMAINS AT 45MCG/KG/MIN, FENTANYL 50MCG/HR. VENT AC 22, PC 20, PEEP 12, FIO2 80%. PT IS CURRENTLY IN THE SUPINE POSITION AND PROPPED ON HIS RIGHT SIDE; APPEARS TO BE TOLERATING WELL. PT TENDS TO PULL BETTER TIDAL VOLUMES WHEN HE IS LYING MORE FLAT THAN WITH BED ELEVATED; THEREFORE, BED SLIGHTLY ELEVATED. PT HAS BEEN IN NSR HR 70-80'S; BP'S STABLE, SEE FLOWSHEET. PRESSURE CONTROL SETTINGS ADJUSTED BY RT T/O NIGHT WITH EACH POSITIONING. CONTINUE TO SUCTION MODERATE AMOUNTS OF THICK, YELLOW/WHITE SECRETIONS FROM ETT. TUBE FEEDS STARTED PER ORDERS AT 0230. BOWEL TONES ARE HYPOACTIVE AND RECTAL TUBE OUTPUT HAS SLOWED. WRIGHT CATHETER IS PATENT AND DRAINING CLEAR JONO COLORED URINE TO GRAVITY. WILL CONTINUE TO MONITOR UNTIL REPORT IS HANDED OFF TO ONCOMING RN.
[2020-02-28 05:39] LABS: BAND PERCENT MAN 2 % (0-8); BASOPHILS PERCENT MAN 0 % (0-2); EOSINOPHILS PERCENT MAN 0 % (0-6); LYMPHOCYTES ABSOLUTE MAN 2.84 K/mm3 (0.84-5.20); LYMPHOCYTES PERCENT MAN 17 % (21-46); METAMYELOCYTE ABSOLUTE MAN 0.66 K/mm3 (0.00-0.00); METAMYELOCYTE PERCENT MAN 4 % (0-0); MONOCYTES PERCENT MAN 6 % (4-13); MYELOCYTE ABSOLUTE MAN 0.16 K/mm3 (0.00-0.00); MYELOCYTE PERCENT MAN 1 % (0-0); NEUTROPHILS ABSOLUTE MAN 12.03 K/mm3 (1.96-9.15); SEG NEUTROPHILS PERCENT MAN 70 % (41-73); TOTAL CELLS COUNTED 100
--- NOTE | 2020-02-28 08:00 | NUR ---
ASSUMED CARE OF PT AT 0700. REPORT FROM ADOLFO SWEET. PT INTUBATED AND SEDATED. VENT SETTINGS AC 22/PS18/12/80%. PROPOFOL GTT 45 MCG/KG/MIN, FENTANYL 50 MCG/HR. PT GRIMACES c ORAL CARE, DOES NOT WITHDRAW EXTREMITIES TO PAINFUL STIMULI. DOES NOT OPEN EYES TO VERBAL STIMULI. COUGH/GAG REFLEX PRESENT. LUNGS COARSE THROUGHOUT. SCANT THICK YELLOW SECRETIONS THROUGH ETT. TUBE FEEDS AT GOAL 65 ML/HR c 30 ML FLUSHES q4 HR. HYPOACTIVE BT. PT HAS NOT HAD ANY MEASUREABLE STOOL VIA RECTAL TUBE FOR SEVERAL SHIFTS. WILL REMOVE THIS SHIFT. WRIGHT PATENT, DRAINING TO GRAVITY. 1+ EDEMA TO ALL EXTREMITIES. PICC TO LUE, DRESSING C/D/I. BP STABLE, O2 SATS LOW 90'S. HR 80-100. WILL CONTINUE TO MONITOR.
--- NOTE | 2020-02-28 10:00 | NUR ---
SEDATION VACATION PROPOFOL ON STANDBY FOR APPROX 1 HOUR. FENTANYL GTT CONTINUES. PT DOES NOT OPEN EYES TO VERBAL STIMULI. DOES NOT FOLLOW COMMANDS. DOES NOT WITHDRAW EXTREMITIES FROM PAINFUL STIMULI. NO CHANGES IN RR, TITAL VOLUMES, MINUTE VENT NOTED. O2 SATS MID 80'S. REPOSITIONED. RESTARTED PROPOFOL D/T LOW SATS.
--- NOTE | 2020-02-28 11:54 | NUR ---
Decision Maker Conversation: Nursing staff asked palliative care to touch bases with the pt's spouse and decision maker, Amena. Pt's condition is not improving, and actually shows signs of worsening clinical picture. Amena is polite during phone conversation. Introduction to palliative care department and our role in the hospital. Time allowed for Amena to relay who the patient is - character - when he is not sick. She reports that the patient has many life-long friends who have maintained a close and intimate friendship. Amena is encouraged by her lopez in God to perform miracles. She believes that God will perform a miracle for her and he will return to normal health. She acknowledges his clinical presentation is not improving, however, she states that she belives he will improve in a few days. She has been counseled on his prognosis and illness everyday from providers. Amena continues to quote Biblical scriptures and talk about Bible stories. Time allowed for Amena to do this. Phone call ended. No changes to treatment or code status at this time. A good rapport was established between decision maker and palliative care department.
--- NOTE | 2020-02-28 14:00 | NUR ---
PRONED PT PRONED c RT AND THREE STAFF MEMBERS. TUBE FEEDS ON STANDBY. MEIPLEX PLACED ON KNEES AND LEFT FOREHEAD. PRONED s DIFFICULTY. ARMS UP BILATERALLY. WILL CONTINUE TO MONITOR.
--- NOTE | 2020-02-28 17:04 | NUR ---
SHIFT SUMMARY PT REMAINS INTUBATED AND SEDATED. VENT SETTINGS AC 22/PC18/12/80%. PROPOFOL GTT AT 45 MCG/KG/MIN, FENTANYL 50 MCG/HR. LUNGS CLEAR SINCE PLACED IN PRONE POSITION. PT CONTINUES TO HAVE COPIOUS SUBGLOTAL AND NASAL SECRETIONS WHILE IN PRONE POSITION. SMALL AMOUNT OF SECRETIONS THROUGH ETT. O2 SATS 91-94%. TUBE FEEDS ON STANDBY. RECTAL TUBE REMOVED THIS SHIFT. WRIGHT REMAINS IN PLACE, PATENT, DRAINED 1800 ML YELLOW URINE TO GRAVITY. BP STABLE, HR 70-100. CALLED DU SEVERAL TIMES AND PLACED PHONE TO PT'S EAR SO THAT COULD SPEAK c PT. WILL CONTINUE TO MONITOR UNTIL REPORT TO ONCOMING NURSE.
--- NOTE | 2020-02-28 20:34 | NUR ---
ASSUMED CARE NOTE: ASSUMED CARE OF PT AT 190, RECEVIED REPORT FROM OSWALDO SWEET. PT IS VENTED AND SEDATED. VENT SETTINGS AC22, PC 18, PEEP 12, FiO2 80%, SPO2 ABOVE 90% PT WAS ON 45MCG/KG/MIN OF PROPOFOL, PLACED ON SB AT 2031 FOR SEDATION VACATION. PT IS NOT RESPONDING TO ANY VERBAL/PAINFUL STIMULI. NO GAG REFLEX PRESENT. PT IS TOLERATING VENT AT THE MOMENT. FENTYNAL CONTINUES TO BE AT 50MCG/HR. LUNG SOUNDS ARE DIMINISHED T/O. PT IS IN NSR WITH HR IN THE 70'S. OGT CLAMPED DURING PRONE. WILL PLACE PT IN SUPINE POSITION AT 0200. PT REPOSITIONED TO RIGHT SIDE, RIGHT ARM UP, LEFT HAND DOWN. RT IN ROOM DURING REPOSITION. WRIGHT PATENT DRAINING TO GRAVITY. VITAL SIGNS STABLE. BILAT SWR IN PLACE.
--- NOTE | 2020-02-28 22:58 | NUR ---
UPDATE/SEDATION VACATION. PROPOFOL CONTINUES TO BE ON STAND BY. PT PULLING IN GOOD TIDAL VOLUMES, NO CHANGES TO RR, PEAK PRESSURES WITHIN LIMITS. PT REPOSITIONED. WHEN REPOSITIONED TO LEFT SIDE WHILE PRONED, SPO2 IS THE IN THE LOW 90'S. WHILE REPOSITIONED TO RIGHT SIDE, SPO2 IN THE MID 90'S. PT DOES NOT RESPOND TO VERBAL OR PAINFUL STIMULI. WILL CONTINUE TO MONITOR PT. UPDATE GIVEN TO .
--- NOTE | 2020-02-29 01:20 | NUR ---
ATTEMPTED TO DO ORAL CARE WHILE PATIENT IS IN PRONE POSITION, UNABLE TO FULLY ACCESS THE ENTIRE TUBE. WILL PROVIDE ORAL CARE AGAIN ONCE PATIENT IS SUPINE AT 0200. SUCTIONED PATINET, THICK YELLOW SECRETIONS NOTED. PT CONTINUES TO BE OFF OF PROPOFOL WITH NO RESPONSE.
--- NOTE | 2020-02-29 02:00 | NUR ---
UPDATE: PT IN SUPINE POSITION AT 0200, UNPRONED WITH RT AT BEDSIDE AND THREE RN'S. PT HAS COPIOUS AMOUNTS OF THICK YELLOW SECRETIONS. PT IS PULLING IN LOWER TIDAL VOLUMES. RT AT BEDSIDE. PT PLACED RIGHT SIDE, AND NOTICED LESS VENT COMPLINCE. PT THEN PLACED ON LEFT SIDE, LITTLE TO NO IMPROVMENT. VENT SETTINGS AC22/PC20/12/80% RR BETWEEN 25-30.
[2020-02-29 04:09] LABS: BASOPHILS ABSOLUTE AUTO 0.07 K/mm3 (0.00-0.23); BASOPHILS PERCENT AUTO 0 % (0-2); EOSINOPHILS ABSOLUTE AUTO 0.09 K/mm3 (0.00-0.68); EOSINOPHILS PERCENT AUTO 1 % (0-6); Hematocrit 38.7 % (37.0-53.0); IMMATURE GRAN ABSOLUTE AUTO 0.45 K/mm3 (0.00-0.10); IMMATURE GRAN PERCENT AUTO 3 % (0-1); LYMPHOCYTES ABSOLUTE AUTO 2.89 K/mm3 (0.84-5.20); LYMPHOCYTES PERCENT AUTO 18 % (21-46); MONOCYTES ABSOLUTE AUTO 0.94 K/mm3 (0.16-1.47); MONOCYTES PERCENT AUTO 6 % (4-13); Mean Corpuscular HGB 32.3 pg (26.0-34.0); Mean Corpuscular Volume 104 fL (80-100); Mean Platelet Volume 9.8 fL (9.1-12.4); NEUTROPHILS ABSOLUTE AUTO 12.02 K/mm3 (1.96-9.15); NEUTROPHILS PERCENT AUTO 73 % (41-73); Platelet Count 266 K/mm3 (150-400); RDW Coefficient Variation 13.2 % (11.7-14.2); Red Blood Cell Count 3.72 M/mm3 (4.30-5.90); White Blood Cell Count 16.46 K/mm3 (4.00-11.30)
[2020-02-29 04:23] LABS: Anion Gap 3 mmol/L (6-16); Blood Urea Nitrogen 25 mg/dL (8-24); Bun/Creatinine Ratio 56.6 (12.0-20.0); CO2, Blood 40 mmol/L (21-32); Chloride, Blood 98 mmol/L (98-108); Creatinine, Blood 0.44 mg/dL (0.60-1.20); Glomerular Filtration Rate >60 (60-); Glucose, Blood 126 mg/dL (70-99); Magnesium, Blood 2.2 mg/dL (1.6-2.4); Phosphorus, Blood 3.3 mg/dL (2.5-4.9); Potassium, Blood 3.8 mmol/L (3.5-5.5); Sodium, Blood 141 mmol/L (136-145)
--- NOTE | 2020-02-29 05:53 | NUR ---
CALLED BRUNO REGARDING PT'S POOR VENTILATION. DISPITE SEVERAL RT EFFORTS VIA VENT SUPPORT. PT IS PULLING IN LOW TIDAL VOLUMES 200-400. PT REPOSITIONED QUITE OFTEN TO AID IN VENT COMPLIANCE WITH NO SUCCESS. MADE AWARE THAT PT HAS BEEN OFF PROPOFOL SINCE SEDATION VACATION, AND THAT PATIENT CONTINUES TO HAVE NO RESPONSE TO PAINFUL OR VERBAL STIMULI. ORDERS TO TURN OFF FENTYNAL GIVEN. DR. CARR MADE AWARE OF SBP OF 160-170, NO NEW ORDERS AT THIS TIME. DR. CARR WOULD LIKE THIS MORNINGS PHYSICAN TO MADE AWARE OF PATIENT'S CONDITION UPON ARRIVAL.
--- NOTE | 2020-02-29 06:41 | NUR ---
SHIFT SUMMARY: SEE PREVIOUS NOTES. NO CHANGES SINCE LAST NOTE. PT CONTINUES TO BE UNRESPONSIVE, NO SEDATION ON BOARD. PT IS ON VENT WITH SETTINGS AT AC22/PC20/12/80%, SPO2 AT 92% OGT TO TUBE FEEDS RUNNING AT 65ML/HR. TEMP 99.7-100.9. PT IN SINUS TACH WITH HR IN THE 120'S WRIGHT PATENT DRAINING TO GRAVITY.
--- NOTE | 2020-02-29 10:08 | NUR ---
ASSUMED CARE AT 0700 PT INTUBATED WITH VENT SETTINGS AC 22, PC 20, PEEP 12, FIO2 80%. MINIMAL SECREATIONS NOTED AND PT TACHYPNEIC. NO SEDATION ON DURING ASSESSMENT; POSITIVE SLOW SLUGGISH DOLL EYES NOTED; MINIMAL GAG REFLEX AND MINIMAL DISCOMFORT DURING ORAL CARE. NO MOVEMENT OF EXTREMITIES AND DEGATIVE PLANTAR REFLEX. TACHYCARDIA NOTED WITH RATE 130'S. SBP 140-170'S. TEMP 100.9. VHP INFUSING VIA OG AT 65ML/HR (GOAL) WITH 30ML WATER FLUSHES Q4HR. WRIGHT PATENT AND DRAINING TO GRAVITY. DR LEONARD NOTIFIED OF EVENTS OVER THE NIGHT AND NEURO STATUS. NEW ORDERS PROVIDED FOR PRECEDEX. SEE SHIFT ASSESSMENT FOR FULL ASSESSMENT.
--- NOTE | 2020-02-29 10:33 | NUR ---
Visit: Pt remains intubated. Pt's , Amena, was requested to come into the hospital for decision making for her . Irma, charge nurse, requests that she be brought in from outside the pt's room to see him and to have conversation with hydroelectric plant mechanical engineer. Amena is in room with pt. camilla Mcgovern, is present. Spoke with hydroelectric plant mechanical engineer. She is aware the famly is here and will be in to speak with the shortly. Will remain available.
--- NOTE | 2020-02-29 14:08 | NUR ---
Spiritual care note: Sat with Amena, spouse, at bedside. Present when physician's explained Roni's decline. Amena was tearful, but appeared to understand. Facilitated exploration of lopez. Spiritual sales counselor well recieved. Amena has been in quarentine and feels understandably lost. She is deeply appreciaitive of prayer and companionship. Amena plans on getting a rapid Covid test today, and if it's negative, she wants her family near her when she lets Roni go. "Not today. I can't do this without my family." Amena has decided to make Roni DNR/DNI, no trach. She will most likey need a few days to emotionally process this loss before withdrawing Roni from life support. We have an easy rapport and I will remain available.
--- NOTE | 2020-02-29 18:33 | NUR ---
END OF SHIFT SUMMARY PT CONT TO BE INTUBATED WITH VENT SETTINGS AC 22, PC 20, PEEP 12, FIO2 80%. PT AT BEDSIDE FOR SEVERAL HOURS TODAY AND DISCUSSED WITH DR LEONARD ABOUT CURRENT SITUATION AND CODE STATUS. PT IS NOW A DNR AND PALLATIVE CARE HAS CONNECTED WITH PT . PT IS NOT TO BE PRONED ANYMORE, ORDERS TO START PRECEDEX, RESTART PROPOFOL IF NEEDED FOR SEDATION, AND PRN FENTANYL FOR DISCOMFORT PROVIDED. PT MINIMALLY MORE AROUSABLE THAN PREVIOUSLY IN REGARDS TO ORAL CARE AND REPOSITIONING WITH SLIGHT EYE MOVEMENT AND GRIMICING. HR 90-130'S. SBP 140-170. MAX TEMP 101.4. VHP INFUSING VIA OG AT 25ML/HR (GOAL) WITH 30ML WATER FLUSHES Q4HR. WRIGHT PATENT AND DRAINING TO GRAVITY. WILL REPORT TO PM RN WHEN AVAILABLE.
--- NOTE | 2020-02-29 19:21 | NUR ---
ASSUMPTION OF CARE RECEIVED REPORT FROM LOUIE SWEET. ASSUMED CARE OF PATIENT. PATIENT INTUBATED AND SEDATED. VENT SETTINGS AC 22, VT 500, PEEP 12, FIO2 80%. TF AT GOAL OF 25ML/HR, PRECEDEX INFUSING AT 0.6 MCG/KG/HR. PICC LINE 7CM OUT, DRESSING INTACT AND WNL. WRIGHT PATENT AND DRAINING CLEAR, YELLOW URINE. NO S/S OF DISTRESS. WILL REVIEW ORDERS AND TREAT PRESCRIBED.
--- NOTE | 2020-02-29 20:28 | NUR ---
PROPOFOL PATIENT STACKING BREATHS, HYPERTENSIVE, COUGHING AND DISCONNECTING ETT FREQUENTLY. PRECEDEX INCREASED TO 0.7MCG/KG/HR, FENTANYL PRN GIVEN CHARTED WITH NO EFFECT ON RESPIRATORY RATE. PROPOFOL RESTARTED AT 10MCG/KG/MIN, WILL MONITOR EFFECT.
[2020-03-01 04:21] LABS: BASOPHILS ABSOLUTE AUTO 0.04 K/mm3 (0.00-0.23); BASOPHILS PERCENT AUTO 0 % (0-2); EOSINOPHILS ABSOLUTE AUTO 0.18 K/mm3 (0.00-0.68); EOSINOPHILS PERCENT AUTO 1 % (0-6); Hematocrit 35.5 % (37.0-53.0); Hemoglobin 11.2 g/dL (13.5-17.5); IMMATURE GRAN ABSOLUTE AUTO 0.29 K/mm3 (0.00-0.10); IMMATURE GRAN PERCENT AUTO 2 % (0-1); LYMPHOCYTES ABSOLUTE AUTO 3.23 K/mm3 (0.84-5.20); LYMPHOCYTES PERCENT AUTO 22 % (21-46); MONOCYTES ABSOLUTE AUTO 0.78 K/mm3 (0.16-1.47); MONOCYTES PERCENT AUTO 5 % (4-13); Mean Corpuscular HGB 32.7 pg (26.0-34.0); Mean Corpuscular HGB Conc 31.5 g/dL (31.5-36.5); Mean Corpuscular Volume 104 fL (80-100); Mean Platelet Volume 9.9 fL (9.1-12.4); NEUTROPHILS PERCENT AUTO 69 % (41-73); Platelet Count 267 K/mm3 (150-400); RDW Coefficient Variation 13.2 % (11.7-14.2); RDW Standard Deviation 50.1 fL (35.1-46.3); Red Blood Cell Count 3.42 M/mm3 (4.30-5.90); White Blood Cell Count 14.52 K/mm3 (4.00-11.30)
[2020-03-01 04:36] LABS: Albumin, Blood 1.8 g/dL (3.4-5.0); Anion Gap 2 mmol/L (6-16); Blood Urea Nitrogen 28 mg/dL (8-24); Bun/Creatinine Ratio 64.1 (12.0-20.0); CO2, Blood 43 mmol/L (21-32); Calcium, Blood 8.9 mg/dL (8.5-10.1); Chloride, Blood 99 mmol/L (98-108); Creatinine, Blood 0.44 mg/dL (0.60-1.20); Glomerular Filtration Rate >60 (60-); Glucose, Blood 135 mg/dL (70-99); Phosphorus, Blood 2.4 mg/dL (2.5-4.9); Potassium, Blood 3.5 mmol/L (3.5-5.5); Sodium, Blood 144 mmol/L (136-145)
--- NOTE | 2020-03-01 06:02 | NUR ---
SHIFT SUMMARY PATIENT REMAINS INTUBATED AND SEDATED. VENT SETTINGS AC 22, PEEP 12, FIO2 80. PRECEDEX AT 0.7MCG/KG/HR, PROPOFOL AT 10MCG/KG/MIN. OCCASIONALLY STACKS BREATHES, BUT TOLERATES VENT VERY WELL. PRODUCTIVE COUGH AND GAG WITH ORAL CARE NOTED. OPENS EYES TO PAINFUL STIMULI, PUPILS REMAINS JENNY. WRIGHT PATENT AND DRAINING. LABS REVIEWED AND REPLACED WITH KPHOS PER ELECTROLYTE PROTOCOL. VITALS STABLE CHARTED. WILL CONTINUE TO MONITOR AND REPORT TO ONCOMING RN.
--- NOTE | 2020-03-01 09:47 | NUR ---
PT'S DU CALLED TO INFORM ME THAT SHE WISHES TO EXTUBATE HER TODAY AND MAKE HIM COMFORT CARE. DU WILL BE HERE LATER THIS AM; JAWBONE BREAKER, PALLIATIVE CARE, PASTORAL CARE, AND DR LEONARD NOTIFIED.
--- NOTE | 2020-03-01 10:00 | NUR ---
ASSUMED CARE AT 0700 PT LAYING IN BED INTUABED WITH VENT SETTINGS AC 22, PC 18, PEEP 12, FIO2 80%. PT ONLY MINIMALLY RESPONSIVE TO ORAL CARE WITH EYES GRIMICING. PROPOFOL INFUSING AT 10MCG/KG/MIN. PRECEDEX INFUSING AT 0.7MCG/KG/HR. HR 100. SBP 110. VHP INFUSING VIA OG AT 25ML/HR WITH 30ML FLUSHES Q4HR. WRIGHT PATENT AND DRAINING TO GRAVITY. SEE SHIFT ASSESSMENT FOR FULL ASSESSMENT.
--- NOTE | 2020-03-01 10:33 | NUR ---
PT AT BEDSIDE ALONG WITH PALLITIVE CARE. PT FAMILY OUTSIDE OF WINDOW. COMFORT CARE ORDERS PLACED, DR LEONARD NOTIFIED. WILL EXTUBATE WHEN IS READY. RT NOTIFIED.
--- NOTE | 2020-03-01 14:14 | NUR ---
EXTUBATION AND END OF LIFE PT EXTUBATED AT 1057 WITH PT OTILIO AT BED SIDE. RESTRAINTS REMOVED EARLIER, SEDATION TURNED OFF, PRN MORPHINE AND ATIVAN GIVEN. PALLIATIVE CARE AT BED SIDE WITH OTILIO AND FAMILY MEMBERS OUTSIDE OF WINDOW. TIME OF 1128.
--- NOTE | 2020-03-01 14:33 | NUR ---
Spiritual care note: Present with , amena throughout extubation and end of life. Provided prayer, treatment counselor, and comfort to good effect. Roni passed peacefully thanks to excellent nursing care and attention. [facility] was selected for final arrangements. Belongings, including wedding ring, home with Amena. I walked her to her car. Friends will be with her today.
--- NOTE | 2020-03-01 14:37 | NUR ---
POST MORDOM CARE COMPLETED. PT DISCHARGED TO [facility] AT 1320. DU CONTACTED ABOUT PT BELONGINGS. BELONGING TO BE PICKED UP BY PT .
== END 2020-03-01 11:28 | DRG 870 ==
LOC: ER 12:05 → ICUW 15:04
PROVIDERS: Emergency Medicine; Family Medicine; Internal Medicine Critical Care Medicine; Nurse Practitioner Acute Care; ADMIT Internal Medicine
PROC: 5A09357 Assistance with Respiratory Ventilation, Less than 24 Consecutive Hours, Continuous Positive Airway Pressure (ICD-10-PCS; principal; 2020-02-17)
PROC: 0BH18EZ Insertion of Endotracheal Airway into Trachea, Via Natural or Artificial Opening Endoscopic (ICD-10-PCS; 2020-02-17)
PROC: 5A1955Z Respiratory Ventilation, Greater than 96 Consecutive Hours (ICD-10-PCS; 2020-02-18)
DX: A41.89 Other specified sepsis (principal); U07.1 COVID-19; J12.89 Other viral pneumonia; J96.01 Acute respiratory failure with hypoxia; I21.A1 Myocardial infarction type 2; G92 Toxic encephalopathy; C91.10 Chronic lymphocytic leukemia of B-cell type not having achieved remission; N17.9 Acute kidney failure, unspecified; Z51.5 Encounter for palliative care; R65.20 Severe sepsis without septic shock; Z99.81 Dependence on supplemental oxygen; E66.01 Morbid (severe) obesity due to excess calories; Z68.33 Body mass index [BMI] 33.0-33.9, adult; E86.0 Dehydration; Z66 Do not resuscitate; Z78.1 Physical restraint status; K21.9 Gastro-esophageal reflux disease without esophagitis
CPT/HCPCS: 31500; 31720; 36415; 36569; 36600; 51702; 71045; 80048; 80053; 80069; 81001; 82330; 82465; 82803; 82947; 83605; 83735; 83880; 84100; 84145; 84478; 84484; 85007; 85025; 85027; 85379; 85610; 85730; 86140; 87040; 87070; 87077; 87086; 87185; 87205; 93005; 93010; 94002; 94003; 94640; 94660; 96374; 96375; 96376; 99285-25; A9270; C1751; C9113; J0330; J0696; J1100; J1650; J1940; J2060; J2270; J2405; J2543; J2704; J3010; J3370; J3480; J7030; J7040; J7050; J7060; J7120